=== PATIENT | male | born 1990 ===

== ENCOUNTER 2020-01-17 08:08 | Outpatient (REF) | payer OTHER, SELFPAY ==
[2020-01-17 10:55] LABS: Basophils Absolute Auto 0.1 X10*3/uL (0.0-0.2); Basophils Percent Auto 1.1 % (0-2); Eosinophils Absolute Auto 0.2 X10*3/uL (0.0-0.4); Eosinophils Percent Auto 3.2 % (0-4); Hemoglobin 14.5 g/dl (14.0-18.0); Imm Gran Abs Auto 0.01 X10*3/uL (0.00-0.03); Imm Gran Pct Auto 0.2 % (0.0-0.4); Lymphocytes Absolute Auto 1.5 X10*3/uL (1.2-4.9); Lymphocytes Percent Auto 32.5 % (20-40); MANUAL DIFF FLAG NO; Mean Corpuscular HGB Conc 33.7 g/dl (31.0-36.0); Mean Corpuscular Hemoglobin 27.4 pg (27.0-33.0); Mean Corpuscular Volume 81.1 fL (80-98); Monocytes Absolute Auto 0.5 X10*3/uL (0.1-1.2); Monocytes Percent Auto 11.5 % (2-11); Neutrophils Absolute Auto 2.4 X10*3/uL (2.0-8.3); Neutrophils Percent Auto 51.5 % (45-73); Platelet Count 237 X10*3/uL (160-400); Red Cell Distribution Width 14.3 % (11.0-16.0); White Blood Count 4.7 X10*3/uL (4.8-10.8)
[2020-01-17 13:04] LABS: Alanine Aminotransferase 20 U/L (0-40); Albumin Level 4.6 g/dL (3.5-5.0); Alkaline Phosphatase 73 U/L (39-117); Anion Gap 9 (12-20); Aspartate Amino Transferase 16 U/L (5-37); Bilirubin Total 0.5 mg/dL (0.0-1.0); Blood Urea Nitrogen 10 mg/dL (9-16); Calcium 9.7 mg/dL (8.4-10.2); Carbon Dioxide 30 mmol/L (22-29); Chloride 103 mmol/L (96-108); Cholesterol 147 mg/dL; Estimated Glomerular Filt Rate > 60; Glucose Fasting 88 mg/dL (60-99); HDL Cholesterol 34 mg/dL; LDL Cholesterol Calculated 83 mg/dl; Potassium 4.3 mmol/l (3.3-5.1); Sodium 138 mmol/L (135-145); Total Protein 7.5 g/dL (6.5-8.0); Triglycerides 152 mg/dL
[2020-01-17 13:21] LABS: TSH reflex Free T4 2.23 mIU/mL (0.32-4.0)
== END 2020-01-17 08:09 | disposition home or self-care (01) ==
LOC: HO.WFDLDS 08:08
PROVIDERS: PCP Family Medicine; Visit Provider Family Medicine
DX: Z00.00 Encounter for general adult medical examination without abnormal findings (principal); K21.00 Gastro-esophageal reflux disease with esophagitis, without bleeding; R07.89 Other chest pain
CPT/HCPCS: 36415; 80053; 80061; 84443; 85025

== ENCOUNTER → 2020-02-24 08:15 | Outpatient (BNVA) | payer OTHER, SELFPAY | PROVIDERS: PCP Family Medicine; Referring Provider Family Medicine; Visit Provider Internal Medicine Gastroenterology | DX: Z76.89 Persons encountering health services in other specified circumstances (principal) ==

== ENCOUNTER → 2020-06-15 09:40 | Outpatient (BNVA) | payer OTHER, SELFPAY | PROVIDERS: PCP Family Medicine; Visit Provider Internal Medicine Gastroenterology ==

== ENCOUNTER 2021-11-26 08:06 | Outpatient (REF) | payer OTHER, SELFPAY ==
[2021-11-26 10:44] LABS: Hematocrit 42.5 % (42.0-52.0); Hemoglobin 14.5 g/dl (14.0-18.0); Mean Corpuscular HGB Conc 34.1 g/dl (31.0-36.0); Mean Corpuscular Hemoglobin 27.9 pg (27.0-33.0); Mean Corpuscular Volume 81.7 fL (80.0-98.0); Platelet Count 221 X10*3/uL (160-400); Red Cell Distribution Width 14.6 % (11.0-16.0); White Blood Count 4.5 X10*3/uL (4.8-10.8)
[2021-11-26 11:01] LABS: Alanine Aminotransferase 23 U/L (0-40); Albumin Level 4.3 g/dL (3.5-5.0); Alkaline Phosphatase 62 U/L (39-117); Anion Gap 13 (12-20); Aspartate Amino Transferase 17 U/L (5-37); Bilirubin Total 0.3 mg/dL (0.0-1.0); Blood Urea Nitrogen 12 mg/dL (9-16); Calcium 9.4 mg/dL (8.4-10.2); Carbon Dioxide 26 mmol/L (22-29); Chloride 105 mmol/L (96-108); Cholesterol 145 mg/dL; Estimated Glomerular Filt Rate > 60; Glucose Fasting 91 mg/dL (60-99); HDL Cholesterol 35 mg/dL; LDL Cholesterol Calculated 85 mg/dl; Potassium 4.2 mmol/L (3.3-5.1); Sodium 140 mmol/L (135-145); Total Protein 7.4 g/dL (6.5-8.0); Triglycerides 126 mg/dL
[2021-11-26 11:15] LABS: HBc Num1 0.12 S/CO (0.00-0.79); Hepatitis A Antibody IgM 0.13 Index (0-0.79); Hepatitis B Core Antibody Nonreactive (Nonreactive); Hepatitis B Surface Antigen Negative (Negative); ~HepC Num1 0.08 S/CO (0.00-0.79); ~Hepatitis A Antibody IgM Nonreactive (Nonreactive); ~Hepatitis B Surface Antibody REACTIVE (Nonreactive); ~Hepatitis C Antibody Nonreactive (Nonreactive)
[2021-11-26 11:23] LABS: TSH reflex Free T4 2.52 uIU/mL (0.32-4.0)
[2021-11-29 20:12] LABS: Rubella IgG Antibody 1.08 Index
== END 2021-11-26 08:07 | disposition home or self-care (01) ==
LOC: HO.WFDLDS 08:06
PROVIDERS: Visit Provider Hospitalist
DX: Z00.00 Encounter for general adult medical examination without abnormal findings (principal); Z02.0 Encounter for examination for admission to educational institution; Z20.2 Contact with and (suspected) exposure to infections with a predominantly sexual mode of transmission
CPT/HCPCS: 36415; 80053; 80061; 84443; 85027; 86704; 86706; 86709; 86735; 86762; 86765; 86787; 86803; 87340

== ENCOUNTER → 2022-09-16 12:26 | Outpatient (BNVA) | payer OTHER, SELFPAY | PROVIDERS: PCP Family Medicine; Visit Provider Nurse Practitioner Family | DX: F07.81 Postconcussional syndrome (principal); G47.9 Sleep disorder, unspecified; G47.50 Parasomnia, unspecified; G47.59 Other parasomnia; R06.83 Snoring; R53.83 Other fatigue | CPT/HCPCS: 99202 ==

== ENCOUNTER → 2022-12-22 14:47 | Outpatient (REF) | payer OTHER, SELFPAY | LOC: HO.SL 14:47 | PROVIDERS: Visit Provider Nurse Practitioner Family | DX: R06.83 Snoring (principal); G47.9 Sleep disorder, unspecified; R53.83 Other fatigue; G47.59 Other parasomnia; G47.50 Parasomnia, unspecified | CPT/HCPCS: 95806 ==

== ENCOUNTER → 2022-12-22 15:02 | Outpatient (BNV) | payer OTHER, SELFPAY | PROVIDERS: Visit Provider Psychiatry & Neurology Neurology | DX: R06.83 Snoring (principal) | CPT/HCPCS: 95806 ==

== ENCOUNTER 2022-12-28 08:24 | Outpatient (AMB) | payer OTHER, SELFPAY ==
--- NOTE | 2022-12-28 08:44 | A.OFFVIS_ITS ---
Intake Vital Signs 12/28/22 08:47 Height 5 ft 5 in Weight 149 lb BMI 24.8 BP 98/72 Blood Pressure Location Rt brachial Position Sitting Pulse 63 Pulse Source Pulse Oximeter Pulse Oximetry (%) 99 Oxygen Delivery Method Room Air Intake Visit Reasons: WC 3m follow up Concussion Intake Note: Patient presents for 3 month follow up. Patient states still have headaches, I have like some type of hallucinations seeing bugs. I just been tired a lot, I don't even get a full 8 hours of sleep Allergies amoxicillin [AMOXICILLIN] Allergy (Mild, Verified 12/28/22 08:47) patient got sick with chills omeprazole [OMEPRAZOLE] Adverse Reaction (Severe, Verified 12/28/22 08:47) gi upset with diarrhea ibuprofen [IBUPROFEN] Adverse Reaction (Mild, Verified 12/28/22 08:47) STOMACH UPSET Medication List - Last Reconciled 12/28/22 by NIR Baugh omega 5-tvd-rpi-fish oil 120-180-500 mg (Fish Oil) caps PO HPI HPI Comments History of Present Illness0 Details 32-yr-old male presents for f/u visit. Pt denies any significant interval medical changes. Pt reports that he continues to have a headache and neck pain every night. He is still not sleeping well- still seeing insects. Today, he woke up with spasms in his upper back/shoulders. He states that PT is not helping. He tried Mag qam - not sure if it helped, stopped when he finished the bottle. Never tried B2- was taking other supplements He is hesitant to take prescription medication. PFSH Surgical History Hx of endoscopy Family History Father Medical history unknown Mother No problems noted. Brother Leukemia Social History Household Members: Spouse Housing: Apartment Alcohol intake: current Alcohol intake frequency: does not drink Patient Tobacco Use Status: Never used Tobacco e-Cigarette/Vaping Use: Never Used Second Hand Smoke Exposure: No service: No Current occupational status: employed Current occupational exposures/hazards: No Cognitive needs: No Hearing needs: No Vision needs: No Review of Systems Const All systems reviewed & are unremarkable except as noted in HPI and below Physical Exam Vital Signs: Last Vital Signs Pulse 63 12/28/22 08:47 BP 98/72 12/28/22 08:47 Pulse Ox 99 12/28/22 08:47 Oxygen Delivery Method Room Air 12/28/22 08:47 BMI result Body Mass Index 24.8 Const General: cooperative and no acute distress Orientation/consciousness: patient oriented x3 HEENT Head: Yes normocephalic Resp Effort & Inspection: normal respiratory effort and able to speak in complete sentences Neuro Other: Photophobic General: patient oriented x3, gait normal and CN's II-XI intact bilaterally Cognition (Neuro): normal cognition Motor exam (neuro): 5/5 motor strength present throughout Psych Appearance: grossly normal Mental Status: mental status grossly normal Speech and movement: Normal speech and movement present Affect: normal affect Attitude: cooperative Thought process: Normal thought process present Thought content: Normal thought content present Insight: Good insight present (Psych) Judgement: Good judgement present (Psych) Assessment & Plan Assessment & Plan (1) Snoring: Code(s): R06.83 - Snoring (2) Sleep difficulties: Code(s): G47.9 - Sleep disorder, unspecified (3) Parasomnia: Code(s): G47.50 - Parasomnia, unspecified (4) Sleep-related hallucinations: Code(s): G47.59 - Other parasomnia (5) Postconcussive syndrome: Code(s): F07.81 - Postconcussional syndrome (6) Restless leg syndrome: Code(s): G25.81 - Restless legs syndrome Plan For Postconcussive Syndrome: Discussed diagnosis, treatment, and trajectory. Pt is not interested in trying Prescription medications at this time. For Postconcussive headache prevention medication: Again start Riboflavin 400mg qam Resume Magnesium 400-500mg qhs For Postconcussive acute headache treatment: Tylenol prn. For headache triggers: Track headaches. Information also given on non-pharmacological interventions, such as Cefaly or Nerivio neuromodulation devices. For Parasomnias, sleep hallucinations, feeling of insects crawling on him, muscle spasms: Reviewed labs- CBC, CMP, B-12, TSH- NL. Ferritin- 89. HST- results inconclusive Pt advised to undergo in-lab PSG to assess for sleep apnea, REM sleep behaviors, PLMS. DDx include RLS, HALIMA, PLMS, REM sleep behavior behaviors. Future considerations: MRI brain. Pt to follow-up in 3 months or sooner prn. Orders: Orders RT PSG in-lab sleep study Today G47.50 - Parasomnia, unspecified, G47.59 - Other parasomnia, G47.9 - Sleep disorder, unspecified, R06.83 - Snoring Medications: New magnesium oxide may hold for loose stools 400 mg PO BEDTIME 30 days 30 tabs 6RF riboflavin (vitamin B2) in am 400 mg (4 x 100 mg) PO DAILY 30 days 120 tabs 6RF Coding Level of Care Code Est Pt Level 4 (35830) Diagnoses Snoring R06.83 Sleep difficulties G47.9 Parasomnia G47.50 Sleep-related hallucinations G47.59 Postconcussive syndrome F07.81 Restless leg syndrome G25.81
[2022-12-28 08:47] VITALS: BP 98/72; PULSE 63; O2SAT 99; BMI 24.8
== END 2022-12-28 09:19 | disposition home or self-care (01) ==
PROVIDERS: PCP Family Medicine; Visit Provider Nurse Practitioner Family
DX: R06.83 Snoring (principal); G47.9 Sleep disorder, unspecified; G47.50 Parasomnia, unspecified; G47.59 Other parasomnia; F07.81 Postconcussional syndrome; G25.81 Restless legs syndrome
CPT/HCPCS: 99214

== ENCOUNTER → 2022-12-28 08:24 | Outpatient (BNVA) | payer OTHER, SELFPAY | PROVIDERS: PCP Family Medicine; Visit Provider Nurse Practitioner Family | DX: G47.59 Other parasomnia (principal); R06.83 Snoring; F07.81 Postconcussional syndrome; G25.81 Restless legs syndrome | CPT/HCPCS: 99212 ==

== ENCOUNTER 2023-01-11 09:49 | Outpatient (AMB) | payer OTHER, SELFPAY ==
--- NOTE | 2023-01-11 09:58 | AM.OFFWIN_ITS ---
Intake Vital Signs 01/11/23 10:05 Height 5 ft 5 in Weight 146 lb BMI 24.3 BP 112/60 Blood Pressure Location Lt brachial Position Sitting Pulse 84 Pulse Source Pulse Oximeter Temp 96.6 F L Temp Source Temporal Artery Scan Pulse Oximetry (%) 98 Oxygen Delivery Method Room Air Intake Visit Reasons: EP, WC back/neck injury Intake Note: Pt is here c/o neck/back, shoulder blade. Pt states he was injured at work in May 2022. Patient Tobacco Use Status: Never used Tobacco Allergies amoxicillin [AMOXICILLIN] Allergy (Mild, Verified 12/28/22 08:47) patient got sick with chills omeprazole [OMEPRAZOLE] Adverse Reaction (Severe, Verified 12/28/22 08:47) gi upset with diarrhea ibuprofen [IBUPROFEN] Adverse Reaction (Mild, Verified 12/28/22 08:47) STOMACH UPSET HPI EP, WC back/neck injury HPI Details 32-year-old male patient presents today for ongoing issues stemming from a fall at work back in May 2022, in which he slipped on stairs and hit the back of his head and upper back. He has been treated since then at [facility] and has completed several months of physical therapy. He has seen Neurology for post concussive syndrome and sleep difficulty. He is scheduled for a sleep study next week on 01/15. He does have follow-up with his PCP Dr. Wen 01/18/23. He recently tried chiropractic treatment, however adjustments were too painful, and he discontinued this. He has not wanted to take medications for his ongoing pain. His primary complaints of pain are in his posterior neck, upper thoracic spine, and right shoulder blade. He is interested in alternative therapy and would like to see pain management if possible. [facility] Surgical History Hx of endoscopy Family History Father Medical history unknown Mother No problems noted. Brother Leukemia Social History Household Members: Spouse Housing: Apartment Alcohol intake: current Alcohol intake frequency: does not drink Patient Tobacco Use Status: Never used Tobacco e-Cigarette/Vaping Use: Never Used Second Hand Smoke Exposure: No service: No Current occupational status: employed Current occupational exposures/hazards: No Cognitive needs: No Hearing needs: No Vision needs: No Review of Systems Const All systems reviewed & are unremarkable except as noted in HPI and below Physical Exam Vital Signs: Last Vital Signs Temp 96.6 F L 01/11/23 10:05 Pulse 84 01/11/23 10:05 BP 112/60 01/11/23 10:05 Pulse Ox 98 01/11/23 10:05 Oxygen Delivery Method Room Air 01/11/23 10:05 BMI result Body Mass Index 24.3 Const General: cooperative, healthy appearing and no acute distress Orientation/consciousness: patient oriented x3 HEENT Head: Yes normal to inspection and Yes normocephalic Ears: hearing grossly normal bilaterally Neck Neck: Yes no lymphadenopathy Resp Effort & Inspection: normal respiratory effort and able to speak in complete sentences Back/Spine/Pelvis Cervical Spine: normal cervical lordosis, cervical muscular tenderness (bilateral, R>L) and pain with cervical ROM Thoracic/Lumbar Spine: thoracic and lumbar spine normal to inspection and paraspinal muscle tenderness (Thoracic and lumbar paraspinal TTP, traps and rhomboids R>L) on the right greater than left Skin General skin exam: no rashes or lesions noted Neuro General: patient oriented x3 and gait normal Extrem General: Yes capillary refill normal and Yes no clubbing, cyanosis or edema Psych Appearance: grossly normal Mental Status: mental status grossly normal Speech and movement: Normal speech and movement present Assessment & Plan Assessment & Plan (1) Postconcussive syndrome: Code(s): F07.81 - Postconcussional syndrome Plan: This is a very pleasant 32-year-old gentleman with post concussive syndrome, and ongoing cervical and thoracic pain following work injury on a flight of stairs in 05/2022. He has been seen at [facility] and [facility] where he completed several month course of PT. he is followed by Neurology, and has a sleep study on 01/15. He is still having difficulty with his pain, and this is impacting activity in daily life. He does not wish to treat with medication, and is interested in seeking alternative therapy. He recently tried chiropractic treatment, however this proved to be too painful to continue. I discussed with him the option of seeing pain management at [facility], as they have many different injection therapy to consider. He is very willing to see them. I will enter referral for this. He is seeing PCP Dr. Wen next week and encouraged he discuss this with him further. He agrees to plan. (2) Musculoskeletal pain: Code(s): M79.18 - Myalgia, other site Orders: Referrals Pain Management Referral F07.81 - Postconcussional syndrome, M79.18 - Myalgia, other site Coding Level of Care Code Est Pt Level 3 (05514) Diagnoses Postconcussive syndrome F07.81 Musculoskeletal pain M79.18
[2023-01-11 10:05] VITALS: BP 112/60; PULSE 84; TEMP 35.9; O2SAT 98; BMI 24.3
== END 2023-01-11 10:39 | disposition home or self-care (01) ==
PROVIDERS: PCP Family Medicine; Visit Provider Nurse Practitioner Family
DX: M79.18 Myalgia, other site (principal); F07.81 Postconcussional syndrome
CPT/HCPCS: 99213

== ENCOUNTER → 2023-01-15 20:30 | Outpatient (REF) | payer OTHER, SELFPAY | LOC: HO.SL 20:30 | PROVIDERS: PCP Family Medicine; Visit Provider Nurse Practitioner Family | DX: G47.59 Other parasomnia (principal); G47.9 Sleep disorder, unspecified; R06.83 Snoring | CPT/HCPCS: 95810 ==

== ENCOUNTER → 2023-01-15 23:17 | Outpatient (BNV) | payer OTHER, SELFPAY | PROVIDERS: PCP Family Medicine; Visit Provider Psychiatry & Neurology Neurology | DX: R06.83 Snoring (principal) | CPT/HCPCS: 95810 ==

== ENCOUNTER 2023-01-18 14:18 | Outpatient (AMB) | payer OTHER, SELFPAY ==
[2023-01-18 14:26] VITALS: BP 118/78; PULSE 71; O2SAT 98; BMI 25.0
--- NOTE | 2023-01-18 14:26 | A.OFFPC_ITS ---
Vital Signs 01/18/23 14:26 Height 5 ft 5 in Weight 150 lb 4 oz BMI 25.0 BP 118/78 Blood Pressure Location Lt brachial Position Sitting Pulse 71 Pulse Source Pulse Oximeter Pulse Oximetry (%) 98 Oxygen Delivery Method Room Air Intake Visit Reasons: workers comp follow up Intake Note: Patient is here to follow up on Workman's comp injury after fall down stairs. Allergies amoxicillin [AMOXICILLIN] Allergy (Mild, Verified 01/18/23 14:30) patient got sick with chills omeprazole [OMEPRAZOLE] Adverse Reaction (Severe, Verified 01/18/23 14:30) gi upset with diarrhea ibuprofen [IBUPROFEN] Adverse Reaction (Mild, Verified 01/18/23 14:30) STOMACH UPSET Tobacco use date assessed: 01/18/23 Dental Screening Did you have a dental visit in the last 12 months?: Yes Did you have a dental problem in the last 6 months where you did not have access to dental care?: No Was dental information given to patient?: Patient has dentist HPI workers comp follow up HPI Details 32 y/o male presents with post concussiv e syndrome and ongoing cervical/thoracic pain following work injury on flight of stairs 05/2022. Had been seen at [facility] and [facility] where he completed several month course of PT, followed by Neurology. Had been unable to tolerate Chiropractics. [facility] Surgical History Hx of endoscopy Family History Father Medical history unknown Mother No problems noted. Brother Leukemia Social History Household Members: Spouse Housing: Apartment Alcohol intake: current Alcohol intake frequency: does not drink Patient Tobacco Use Status: Never used Tobacco e-Cigarette/Vaping Use: Never Used Second Hand Smoke Exposure: No service: No Current occupational status: employed Current occupational exposures/hazards: No Cognitive needs: No Hearing needs: No Vision needs: No Physical exam (Primary Care) Vital Signs: Last Vital Signs Pulse 71 01/18/23 14:26 BP 118/78 01/18/23 14:26 Pulse Ox 98 01/18/23 14:26 Oxygen Delivery Method Room Air 01/18/23 14:26 BMI result Body Mass Index 25.0 Tobacco/Smoking Status: Tobacco use Status Tobacco use date assessed 01/18/23 01/18/23 14:31 Patient Tobacco Use Status Never used Tobacco 01/18/23 14:31 e-Cigarette/Vaping Use Never Used 01/18/23 14:31 Assessment and Plan Assessment & Plan (1) Back pain: Code(s): M54.9 - Dorsalgia, unspecified Plan: 32 y/o male w/ post concussive syndrome, and ongoing cervical and thoracic pain following work injury on a flight of stairs in 05/2022. He has been seen at [facility] and [facility] where he completed several month course of PT. he is followed by Neurology, Tried Chiropractics but didn't tolerate due to pain. Recently seen at [facility]-in and referred to pain management. Still unable to work. 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 school?systems?when?he?is?able. Follow-up?with?pain?management?as?recommended. Continue?ice?and?heat,?gentle?stretching.??Continue?magnesium. Can?use?Aleve?or?NSAIDs?as?needed; patient?does?not?like?to?use?medications. (2) Postconcussive syndrome: Code(s): F07.81 - Postconcussional syndrome Plan: Unclear?if?he?has?any?lasting?sequela?from?postconcussi ve?syndrome?though?he?does?seem?mildly?anxious/depressed He?has?had?a?therapist?in?the?past?though?does?not?currently. I?let?him?know?that?he?could?use?a?medication?but?patient?declines?as?he?does?no t?like?to?use?medications.??See?below. (3) Anxiety: Code(s): F41.9 - Anxiety disorder, unspecified Plan: Made?patient?aware?that?he?could?use?medications?which?could?help?with?any?anxie ty?or?depression?that?he?has. He?declines?this?for?now. Plan Let?patient?know?that?some?medications?such?as?Cymbalta?can?help?with?anxiety/de pression?as?well?as?pain. He?does?not?want?to?try?a?medication?at?this?time?but?is?now?where.??He?can?let? me?know?if?he?changes?his?mind. Coding Level of Care Code Est Pt Level 4 (31283) Diagnoses Back pain M54.9 Postconcussive syndrome F07.81 Anxiety F41.9
== END 2023-01-18 15:54 | disposition home or self-care (01) ==
PROVIDERS: PCP Family Medicine; Visit Provider Family Medicine
DX: M54.9 Dorsalgia, unspecified (principal); F07.81 Postconcussional syndrome; F41.9 Anxiety disorder, unspecified
CPT/HCPCS: 99214

== ENCOUNTER 2023-01-30 08:19 | Outpatient (AMB) | payer OTHER, SELFPAY ==
[2023-01-30 08:39] VITALS: BP 115/70; PULSE 67; O2SAT 96; BMI 24.7
--- NOTE | 2023-01-30 08:39 | A.OFFVIS_ITS ---
Intake Vital Signs 01/30/23 08:39 Height 5 ft 5 in Weight 148 lb 6 oz BMI 24.7 BP 115/70 Blood Pressure Location Rt brachial Position Sitting Pulse 67 Pulse Source Pulse Oximeter Pulse Oximetry (%) 96 Oxygen Delivery Method Room Air Intake Visit Reasons: myalgia, post-concussion syndrome Intake Note: Pt here after sustaining a fall at work in May 2022-c/o 8/10 neck pain/upper back Allergies amoxicillin [AMOXICILLIN] Allergy (Mild, Verified 01/30/23 08:41) patient got sick with chills omeprazole [OMEPRAZOLE] Adverse Reaction (Severe, Verified 01/30/23 08:41) gi upset with diarrhea ibuprofen [IBUPROFEN] Adverse Reaction (Mild, Verified 01/30/23 08:41) STOMACH UPSET Medication List - Last Reconciled 01/30/23 by Aspen Stephenson, RN magnesium oxide 400 mg PO BEDTIME 30 days riboflavin (vitamin B2) 400 mg (4 x 100 mg) PO DAILY 30 days HPI HPI Comments History of Present Illness Details Jesus is very pleasant 32 years old gentleman who presents in my office by referral of Fauzia Love with symptoms of widespread body pain and diagnosis of cervicalgia and cervical spondylosis. The patient had trauma in May of 2021 a and the mechanism of trauma was sleep and fall. He fell on his back and injured his head and neck during the fall. Since then he is suffering from severe pain in the neck severe pain in the right shoulder and the right scapula as well as pain in the thoracic spine pain in lumbar spine in pain in the right side of the coccyx. However today he presents with most prominent pain in the neck. It is most debilitating in causes severe impairment he cannot sleep normally cannot do activities of daily living he can take care of himself but he cannot function normally. Weather changes aggravates his pain and cold application make his pain better his level of pain is 8/10. In terms of tissue damage he reports his pain as sharp, cutting, lacerating, pinching, crushing, tugging, ranging, tingling, stinging, dull, heavy, tight, tearing. He is currently taking vitamin B2 and OTC magnesium for the spastic sensations in his body. He participated in physical therapy 4 times and each time he had about 4 sessions and he performed home exercise program. He also tried low impact aerobic exercise as well as stretching in the attempt to alleviate his pain. He tried chiropractic manipulations however chiropractor did not address the issue of his cervical spine. The chiropractor was doing only lower back and hip manipulations. His past medical history is negative. Past surgical history is negative. He denies smoking cigarettes drinking alcohol using recreational drugs. He is working individual. PFSH Surgical History Hx of endoscopy Family History Father Medical history unknown Mother No problems noted. Brother Leukemia Social History Household Members: Spouse Housing: Apartment Alcohol intake: current Alcohol intake frequency: does not drink Patient Tobacco Use Status: Never used Tobacco e-Cigarette/Vaping Use: Never Used Second Hand Smoke Exposure: No service: No Current occupational status: employed Current occupational exposures/hazards: No Cognitive needs: No Hearing needs: No Vision needs: No Review of Systems Const Denies body aches, Denies chills, Denies daytime sleepiness, Denies difficulty sleeping, Denies excessive sweating and Denies fatigue Eyes Denies change in vision Card Denies chest pain at rest, Denies chest pain with activity, Denies diaphoresis, Denies syncope, Denies rapid heart rate and Denies pedal edema Resp Denies chest congestion, Denies cough, Denies hemoptysis, Denies pain on inspiration and Denies pain with cough GI Denies abdominal pain, Denies belching, Denies melena and Denies bloating Denies urinary incontinence Musc Reports as per HPI Neuro Denies confusion, Denies syncope, Denies memory loss, Denies seizure-like acti vity and Denies Sensory deficit (Neuro) Psych Denies confusion, Denies irritability, Denies anhedonia and Denies memory loss Endo Denies excessive sweating and Denies fatigue Physical Exam Vital Signs: Last Vital Signs Pulse 67 01/30/23 08:39 BP 115/70 01/30/23 08:39 Pulse Ox 96 01/30/23 08:39 Oxygen Delivery Method Room Air 01/30/23 08:39 BMI result Body Mass Index 24.7 Const General: No confusion Orientation/consciousness: No confusion HEENT Head: Yes normal to inspection and Yes normocephalic Ears: hearing grossly normal bilaterally Neck Neck: Yes no lymphadenopathy Resp Effort & Inspection: normal respiratory effort and able to speak in complete sentences Back/Spine/Pelvis Cervical Spine: normal cervical lordosis, cervical muscular tenderness (bilateral, R>L) and pain with cervical ROM Thoracic/Lumbar Spine: thoracic and lumbar spine normal to inspection and paraspinal muscle tenderness (Thoracic and lumbar paraspinal TTP, traps and rhomboids R>L) on the right greater than left Skin General skin exam: no rashes or lesions noted Neuro General: No confusion Sensory Exam: No Sensory deficit (Neuro) Extrem General: Yes capillary refill normal and Yes no clubbing, cyanosis or edema Psych Appearance: grossly normal Mental Status: mental status grossly normal Speech and movement: Normal speech and movement present Results Reviewed Results Reviewed: X-rays not available to me however dorsal of cervical lordosis was mentioned in the 1 of his providers nodes. Assessment & Plan Assessment & Plan (1) Chronic pain syndrome: Code(s): G89.4 - Chronic pain syndrome (2) Spondylosis of cervical spine: Code(s): M47.812 - Spondylosis without myelopathy or radiculopathy, cervical region (3) Spondylosis of cervical joint without myelopathy: Code(s): M47.812 - Spondylosis without myelopathy or radiculopathy, cervical region (4) Postconcussive syndrome: Code(s): F07.81 - Postconcussional syndrome (5) Paresthesias: Code(s): R20.2 - Paresthesia of skin (6) Fatigue: Code(s): R53.83 - Other fatigue (7) Headache: Code(s): R51.9 - Headache, unspecified (8) Musculoskeletal pain: Code(s): M79.18 - Myalgia, other site Plan Most likely this patient is suffering from muscular skeletal pain as well as spondylosis of cervical spine. The straightening of the lordosis of the cervical spine is demonstrable in this patient's case. I offered this patient therapeutic medial branch block C4-C5 C6 bilateral in the attempt to alleviate his pain. If the injection will give patient significant pain relief I will schedule him for series of injections but no more frequent that months in 3 months. Alternatively we can try sprint PNS if initial C4-C5 bilateral MBB will be working for him He will be referred to physical therapy again if injection is successful alleviates his pain. I also recommend him to find a good chiropractor who can work on restoring his cervical lordosis. Coding Level of Care Code New Pt Level 4 (14336) Diagnoses Chronic pain syndrome G89.4 Spondylosis of cervical spine M47.812 Spondylosis of cervical joint without myelopathy M47.812 Postconcussive syndrome F07.81 Paresthesias R20.2 Fatigue R53.83 Headache R51.9 Musculoskeletal pain M79.18
== END 2023-01-30 08:47 | disposition home or self-care (01) ==
PROVIDERS: PCP Family Medicine; Visit Provider Anesthesiology
DX: G89.4 Chronic pain syndrome (principal); M47.812 Spondylosis without myelopathy or radiculopathy, cervical region; M79.18 Myalgia, other site; F07.81 Postconcussional syndrome; R20.2 Paresthesia of skin; R53.83 Other fatigue; R51.9 Headache, unspecified
CPT/HCPCS: 99204

== ENCOUNTER → 2023-01-30 08:19 | Outpatient (BNVA) | payer OTHER, SELFPAY | PROVIDERS: PCP Family Medicine; Visit Provider Anesthesiology ==

== ENCOUNTER 2023-01-31 14:27 | Outpatient (AMB) | payer OTHER, SELFPAY ==
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
[2023-01-31 15:00] VITALS: BP 118/70; PULSE 67; TEMP 36.6; O2SAT 97; BMI 24.6
== END 2023-01-31 16:26 | disposition home or self-care (01) ==
PROVIDERS: PCP Family Medicine; Visit Provider Physician Assistant
DX: S16.1XXA Strain of muscle, fascia and tendon at neck level, initial encounter (principal); S29.019A Strain of muscle and tendon of unspecified wall of thorax, initial encounter
CPT/HCPCS: 99213

== ENCOUNTER 2023-03-13 16:01 | Outpatient (AMB) | payer OTHER, BC, SELFPAY ==
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
[2023-03-13 16:24] VITALS: BP 110/62; PULSE 63; O2SAT 96; BMI 25.1
== END 2023-03-13 16:50 | disposition home or self-care (01) ==
PROVIDERS: PCP Family Medicine; Visit Provider Internal Medicine
DX: R25.2 Cramp and spasm (principal)
CPT/HCPCS: 99213

== ENCOUNTER 2023-03-21 06:05 | Outpatient (REF) | payer OTHER, BC, SELFPAY ==
--- NOTE | ~2023-03-21 | FL_ITS ---
EXAMINATION: XR FLUOROSCOPY WITH IMAGES CLINICAL INFORMATION: Spondylosis without myelopathy or radiculopathy, cervical region. COMPARISON: None available. TECHNIQUE: Fluoroscopy Supervised By: Dr. Devonte Raya. Fluoroscopy Time: 0.7 minutes. Cumulative Dose: 1.88 mGy. DAP: 0.0257 Gycm2. Images: 2. FINDINGS: Images demonstrate needle placement and contrast injection adjacent to bilateral lateral cervical vertebrae FL/FL guidance in treatment room IMPRESSION: Fluoroscopy guidance for pain management procedure.
== END 2023-03-21 06:06 | disposition home or self-care (01) ==
LOC: CF 06:05
PROVIDERS: Visit Provider Anesthesiology
DX: M47.812 Spondylosis without myelopathy or radiculopathy, cervical region (principal); M79.18 Myalgia, other site; R20.2 Paresthesia of skin; G89.4 Chronic pain syndrome
CPT/HCPCS: 64490; 64491; J1100; J2795; J3301; Q9967

== ENCOUNTER 2023-03-21 07:53 | Outpatient (AMB) | payer BC, SELFPAY ==
--- NOTE | 2023-03-21 08:39 | MHC.OFFVIS ---
Intake Vital Signs 03/21/23 09:02 03/21/23 09:03 Height 5 ft 5 in 5 ft 5 in Weight 151 lb 151 lb BMI 25.1 25.1 BP 118/62 118/70 Blood Pressure Location Lt brachial Lt brachial Position Sitting Sitting Respiration 18 18 Pulse 68 62 Pulse Source Pulse Oximeter Pulse Oximeter Pulse Oximetry (%) 97 100 Oxygen Delivery Method Room Air Room Air Comment pre-op post-op Intake Visit Reasons: BILAT C4-C5-C6 MBB W/STEROIDS/LOCAL Allergies amoxicillin [AMOXICILLIN] Allergy (Mild, Verified 03/21/23 09:03) patient got sick with chills omeprazole [OMEPRAZOLE] Adverse Reaction (Severe, Verified 03/21/23 09:03) gi upset with diarrhea ibuprofen [IBUPROFEN] Adverse Reaction (Mild, Verified 03/21/23 09:03) STOMACH UPSET PFSH Surgical History Hx of endoscopy Family History Father Medical history unknown Mother No problems noted. Brother Leukemia Social History Household Members: Spouse Housing: Apartment Alcohol intake: current Alcohol intake frequency: does not drink Patient Tobacco Use Status: Never used Tobacco e-Cigarette/Vaping Use: Never Used Second Hand Smoke Exposure: No service: No Current occupational status: employed Current occupational exposures/hazards: No Cognitive needs: No Hearing needs: No Vision needs: No Physical Exam Vital Signs: Last Vital Signs Pulse 62 03/21/23 09:03 Resp 18 03/21/23 09:03 BP 118/70 03/21/23 09:03 Pulse Ox 100 03/21/23 09:03 Oxygen Delivery Method Room Air 03/21/23 09:03 BMI result Body Mass Index 25.1 Assessment & Plan Assessment & Plan (1) Chronic pain syndrome: Code(s): G89.4 - Chronic pain syndrome (2) Spondylosis of cervical spine: Code(s): M47.812 - Spondylosis without myelopathy or radiculopathy, cervical region (3) Spondylosis of cervical joint without myelopathy: Code(s): M47.812 - Spondylosis without myelopathy or radiculopathy, cervical region (4) Postconcussive syndrome: Code(s): F07.81 - Postconcussional syndrome (5) Paresthesias: Code(s): R20.2 - Paresthesia of skin Plan: Bilateral C4-C4- C6 therapeutic medial branch block. ?Informed consent was explained to the patient. All questions were explained and answered.? The patient was taken inside the operating room where she was positioned prone on the operating table. Time-out was performed delineating correct site, side, the nature of the procedure, patient's allergy, preoperative antibiotic if needed.? All operating room staff was participating in OR time-out procedure. The back of the neck and upper back were prepped with ChloraPrep and draped with sterile towels.? Sterilely draped C-arm was brought over the operating field and sq picture of? C4-C5-C6 vertebrae were delineated on the screen.? Points of interest were delineated as lateral masses bilaterally of the vertebrae as above. The waste of each lateral mass was chosen as the target of the tip of the needles on AP view and lateral view was used as a safety view for the tips of the needles position.?? The projections of the point of interest to the skin were injected with the small amount of local anesthetic lidocaine 2% 1-1.5 cc.? After that 22 gauge 3and 1/2 inch? spinal needles were driven to the point of interest in tunnel vision fashion. After needles gently contacted the bone at the point of interests the needle was injected with small amount of the contrast. The injections did not demonstrate intravascular or intrathecal spread.. After that ropivacaine 0.5%-1cc. mixed with kenalog was injected into each location of the needles. ( total dose of Kenalog was 80 mgs).? Upon completion of the injections the needles were removed and sterile dressings were applied, the patient was a taken? outside of the operating room to recovery room where she recovered uneventfully. (6) Fatigue: Code(s): R53.83 - Other fatigue (7) Headache: Code(s): R51.9 - Headache, unspecified (8) Musculoskeletal pain: Code(s): M79.18 - Myalgia, other site Plan Most likely this patient is suffering from muscular skeletal pain as well as spondylosis of cervical spine. The straightening of the lordosis of the cervical spine is demonstrable in this patient's case. I offered this patient therapeutic medial branch block C4-C5 C6 bilateral in the attempt to alleviate his pain. If the injection will give patient significant pain relief I will schedule him for series of injections but no more frequent that months in 3 months. Alternatively we can try sprint PNS if initial C4-C5 bilateral MBB will be working for him He will be referred to physical therapy again if injection is successful alleviates his pain. I also recommend him to find a good chiropractor who can work on restoring his cervical lordosis. Orders: Orders FL guidance in treatment room 03/21/23 M47.812 - Spondylosis without myelopathy or radiculopathy, cervical region Coding Level of Care Code Procedure Only Diagnoses Chronic pain syndrome G89.4 Spondylosis of cervical spine M47.812 Spondylosis of cervical joint without myelopathy M47.812 Postconcussive syndrome F07.81 Paresthesias R20.2 Fatigue R53.83 Headache R51.9 Musculoskeletal pain M79.18
[2023-03-21 09:02] VITALS: BP 118/62; PULSE 68; RESP 18; O2SAT 97; BMI 25.1
[2023-03-21 09:03] VITALS: BP 118/70; PULSE 62; RESP 18; O2SAT 100; BMI 25.1
== END 2023-03-21 08:37 | disposition home or self-care (01) ==
LOC: HO.PMCPRC 07:53
PROVIDERS: PCP Family Medicine; Visit Provider Anesthesiology
DX: M47.812 Spondylosis without myelopathy or radiculopathy, cervical region (principal)
CPT/HCPCS: 64490; 64491

== ENCOUNTER 2023-03-30 14:32 | Outpatient (AMB) | payer OTHER, BC, SELFPAY ==
--- NOTE | 2023-03-30 14:33 | MHC.PC.OV ---
Vital Signs 03/30/23 14:35 Height 5 ft 5 in Weight 150 lb BMI 25.0 BP 118/80 Blood Pressure Location Lt brachial Position Sitting Pulse 67 Pulse Source Pulse Oximeter Pulse Oximetry (%) 98 Oxygen Delivery Method Room Air Intake Visit Reasons: Pain & Management Referral Intake Note: Patient is here for pain management referral. Allergies amoxicillin [AMOXICILLIN] Allergy (Mild, Verified 03/30/23 14:37) patient got sick with chills omeprazole [OMEPRAZOLE] Adverse Reaction (Severe, Verified 03/30/23 14:37) gi upset with diarrhea ibuprofen [IBUPROFEN] Adverse Reaction (Mild, Verified 03/30/23 14:37) STOMACH UPSET Tobacco use date assessed: 03/30/23 Dental Screening Dental Screen Date: 03/30/23 Did you have a dental visit in the last 12 months?: Yes Did you have a dental problem in the last 6 months where you did not have access to dental care?: No Was dental information given to patient?: Patient has dentist HPI Pain & Management Referral HPI Details 32 y/o male presents to f/u chronic pain. Had seen Dr. Raya 03/21/23 pain management. Per note pt most likely suffering from muscular skeletal pain as well as spondylosis of cervical spine. Had offered pt injection therapy and referral to PT again if injection successful. He notes ongoing spasms under his shoulder blades and back. He has been taking tylenol for relief. He notes he has trialed muscle relaxants in the past which did not help much. PFSH Surgical History Hx of endoscopy Family History Father Medical history unknown Mother No problems noted. Brother Leukemia Social History Household Members: Spouse Housing: Apartment Alcohol intake: current Alcohol intake frequency: does not drink Patient Tobacco Use Status: Never used Tobacco e-Cigarette/Vaping Use: Never Used Second Hand Smoke Exposure: No service: No Current occupational status: employed Current occupational exposures/hazards: No Cognitive needs: No Hearing needs: No Vision needs: No Questionnaire PHQ-9 Over the last 2 weeks, how often have you been bothered by any of the following problems? 1. Little interest or pleasure in doing things: not at all 2. Feeling down, depressed, or hopeless: not at all 3. Trouble falling or staying asleep, or sleeping too much: nearly every day 4. Feeling tired or having little energy: not at all 5. Poor appetite or overeating: not at all 6. Feeling bad about yourself - or that you are a failure or have let yourself or your family down: not at all 7. Trouble concentrating on things, such as reading the newspaper or watching television: not at all 8. Moving or speaking so slowly that other people could have noticed. Or the opposite - being so fidgety or restless that you have been moving around a lot more than usual: not at all 9. Thoughts that you would be better off or of hurting yourself in some way: not at all Total score: 3 Depression Screening Interpretation: Negative Depression Screening Done: Yes Source: Developed by Drs. Wil Lugo, Elke Olivarez, Blaise Gardner and colleagues, with an educational alex from [employer]. Thrive Questionnaire Date Thrive assessed: 03/30/23 I am a: Patient What is your living situation today?: I have a steady place to live Within the past 12 months, did the food you bought not last and you didn't have the money to get more?: Often true Within the past 12 months, did you worry whether your food would run out before you got money to buy more?: Often true Do you have trouble paying for medicines?: No Do you have trouble getting transportation to medical appointments?: No Do you have trouble paying your heating and electricity bill?: Yes Do you have trouble taking care of your child, family member or friend?: No Do you have trouble with day-to-day activities such as bathing, preparing meals, shopping, managing finances, etc.?: No Are you currently unemployed and looking for a job?: No Are you interested in more education?: No AUDIT C Alcohol Use Questionnaire (AUDIT-C) 1. How often do you have a drink containing alcohol?: Never 3. How often do you have six or more drinks on one occasion?: Never Total Score: 0 YEE-7 AMB Questionnaire YEE-7 Date YEE - 7 assessed: 03/30/23 Feeling nervous, anxious, or on edge: 0 = Not at all Not being able to stop or control worryin = Not at all Worrying too much about different things: 0 = Not at all Trouble relaxin = Not at all Being so restless that it is hard to sit still: 0 = Not at all Becoming easily annoyed or irritable: 0 = Not at all Feeling afraid as if something awful might happen: 0 = Not at all Total YEE-7 score (0-4 normal; 5-9 mild; 10-14 moderate; 15-21 severe): 0 Source: Developed by Drs. Wil Lugo, Elke Olivarez, Blaise Gardner and colleagues, with an educational alex from [employer]. Review of Systems Const Denies chills, Denies fatigue, Denies fever(s), Denies headache(s) and Denies weakness ENT Denies dizziness and Denies headache(s) Card Denies dyspnea Resp Denies cough, Denies dyspnea, Denies wheezing and Denies other (shortness of breath) Musc Denies numbness and Denies tingling Neuro Denies dizziness, Denies headache(s), Denies numbness, Denies tingling and Denies weakness Psych Denies anxiety and Denies depression Endo Denies fatigue Aller/Immun Denies wheezing Physical exam (Primary Care) Vital Signs: Last Vital Signs Pulse 67 03/30/23 14:35 BP 118/80 03/30/23 14:35 Pulse Ox 98 03/30/23 14:35 Oxygen Delivery Method Room Air 03/30/23 14:35 BMI result Body Mass Index 25.0 Tobacco/Smoking Status: Tobacco use Status Tobacco use date assessed 03/30/23 03/30/23 14:37 Patient Tobacco Use Status Never used Tobacco 03/30/23 14:35 e-Cigarette/Vaping Use Never Used 03/30/23 14:35 Depression Screening Interpretation: Negative Const General: well developed; No acute distress Nutritional Appearance: well nourished Orientation/consciousness: patient oriented x3 HENMT Head: Yes normocephalic and Yes atraumatic Eyes General: appearance normal, both eyes and all related structures Pupils: Equal, round and reactive pupils present EOM: EOMs intact bilaterally Resp Effort & Inspection: normal respiratory effort Neuro General: patient oriented x3 and gait normal Cranial nerves: Yes Equal, round and reactive pupils present Psych Affect: normal affect Assessment and Plan Assessment & Plan (1) Chronic pain syndrome: Code(s): G89.4 - Chronic pain syndrome Plan: Ongoing?chronic?pain?in?neck?back?and?hip He?notes?significant?improvement?in?his?neck?after?injection?therapy?at?pain?management. Pain?management?and?also?recommended?physical?therapy?and?chiropractic?so?I?have?made?these?referrals Will?give?him?diclofenac?topical?as?he?does?not?like?taking?pills (2) Spondylosis of cervical spine: Code(s): M47.812 - Spondylosis without myelopathy or radiculopathy, cervical region Plan: As?above (3) Financial difficulties: Code(s): M54.9 - Dorsalgia, unspecified Plan: Patient?requests?info?on?any?financial?assistance?or?Alex's.??I?referred?him?to?the?nurse?navigator?to?evaluate?for?services?or?resources. Orders: Orders XR thoracic spine 2V Today S29.019A - Strain of muscle and tendon of unspecified wall of thorax, initial encounter PT Evaluation and Treatment Today M25.559 - Pain in unspecified hip, S16.1XXA - Strain of muscle, fascia and tendon at neck level, initial encounter, S29.019A - Strain of muscle and tendon of unspecified wall of thorax, initial encounter Referrals Chiropractic Referral M25.559 - Pain in unspecified hip, S16.1XXA - Strain of muscle, fascia and tendon at neck level, initial encounter, S29.019A - Strain of muscle and tendon of unspecified wall of thorax, initial encounter Nurse Navigator Referral Z59.9 - Problem related to housing and economic circumstances, unspecified Medications: New diclofenac sodium 1% apply to single elbow, wrist or hand; for hand includes palm/fingers/back of hand 4 grams topical TID 200 grams 3RF 30 days Coding Level of Care Code Est Pt Level 4 (37624) Diagnoses Chronic pain syndrome G89.4 Spondylosis of cervical spine M47.812 Back pain M54.9
[2023-03-30 14:35] VITALS: BP 118/80; PULSE 67; O2SAT 98; BMI 25.0
== END 2023-03-30 15:10 | disposition home or self-care (01) ==
PROVIDERS: PCP Family Medicine; Visit Provider Family Medicine
DX: G89.4 Chronic pain syndrome (principal); M47.812 Spondylosis without myelopathy or radiculopathy, cervical region; M54.9 Dorsalgia, unspecified
CPT/HCPCS: 99214

== ENCOUNTER → 2023-04-20 08:40 | Outpatient (BNVA) | payer BC, SELFPAY | PROVIDERS: PCP Family Medicine; Visit Provider Anesthesiology ==

== ENCOUNTER 2023-04-20 08:41 | Outpatient (AMB) | payer BC, SELFPAY ==
[2023-04-20 08:49] VITALS: BP 111/66; PULSE 64; RESP 16; O2SAT 97; BMI 25.0
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
== END 2023-04-20 09:27 | disposition home or self-care (01) ==
PROVIDERS: PCP Family Medicine; Visit Provider Anesthesiology
DX: G89.4 Chronic pain syndrome (principal); M47.812 Spondylosis without myelopathy or radiculopathy, cervical region; F07.81 Postconcussional syndrome; R20.2 Paresthesia of skin; R53.83 Other fatigue; R51.9 Headache, unspecified; M79.18 Myalgia, other site
CPT/HCPCS: 99214

== ENCOUNTER 2023-06-26 13:57 | Outpatient (AMB) | payer OTHER, SELFPAY ==
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
[2023-06-26 14:05] VITALS: BP 110/70; PULSE 70; O2SAT 97; BMI 25.5
== END 2023-06-26 14:34 | disposition home or self-care (01) ==
PROVIDERS: PCP Family Medicine; Visit Provider Family Medicine
DX: Z00.00 Encounter for general adult medical examination without abnormal findings (principal); M54.2 Cervicalgia; M25.519 Pain in unspecified shoulder; K21.00 Gastro-esophageal reflux disease with esophagitis, without bleeding; S29.012A Strain of muscle and tendon of back wall of thorax, initial encounter
CPT/HCPCS: 99395

== ENCOUNTER 2023-07-05 08:06 | Outpatient (REF) | payer OTHER, SELFPAY ==
[2023-07-05 11:13] LABS: MANUAL DIFF FLAG NO
[2023-07-05 11:44] LABS: Appearance Urine Clear; Color Urine Yellow; Glucose Urine UA Negative (Negative); Leukocyte Esterase Urine Negative (Negative); Nitrite Urine Negative (Negative); PH 5.5 (5.0-9.0); Urine Blood Negative (Negative); Urine Ketones Negative (Negative); Urine Protein Negative (Neg-Trace)
[2023-07-05 11:48] LABS: Eosinophils Absolute Auto 0.1 X10*3/uL (0.0-0.4); Eosinophils Percent Auto 3.6 % (0-4); Hematocrit 43.5 % (42.0-52.0); Hemoglobin 14.7 g/dl (14.0-18.0); Imm Gran Abs Auto 0.01 X10*3/uL (0.00-0.03); Imm Gran Pct Auto 0.3 % (0.0-0.4); Lymphocytes Absolute Auto 1.5 X10*3/uL (1.2-4.9); Lymphocytes Percent Auto 37.8 % (20-40); Mean Corpuscular HGB Conc 33.8 g/dl (31.0-36.0); Mean Corpuscular Hemoglobin 28.1 pg (27.0-33.0); Mean Platelet Volume 12.2 fL (9.4-12.4); Monocytes Absolute Auto 0.4 X10*3/uL (0.1-1.2); Monocytes Percent Auto 10.2 % (2-11); Neutrophils Absolute Auto 1.8 x10*3/uL (2.0-8.3); Neutrophils Percent Auto 47.1 % (45-73); Platelet Count 211 X10*3/uL (160-400); Red Blood Count 5.24 X10*6/uL (4.60-5.80); Red Cell Distribution Width 14.8 % (11.0-16.0); White Blood Count 3.8 X10*3/uL (4.8-10.8)
[2023-07-05 12:33] LABS: Creatinine Urine 142.27 mg/dL; Microalbum/Creatinine Ratio Ur 4.2 ug/mg cr (<30)
[2023-07-05 12:49] LABS: Alanine Aminotransferase 44 U/L (0-40); Albumin Level 4.4 g/dL (3.5-5.0); Alkaline Phosphatase 66 U/L (39-117); Anion Gap 11 (12-20); Aspartate Amino Transferase 21 U/L (5-37); Bilirubin Total 0.5 mg/dL (0.0-1.0); Blood Urea Nitrogen 13 mg/dL (9-16); Calcium 9.6 mg/dL (8.4-10.2); Carbon Dioxide 27 mmol/L (22-29); Chloride 106 mmol/L (96-108); Cholesterol 170 mg/dL (<200); Estimated Glomerular Filt Rate > 60; Glucose Fasting 76 mg/dL (60-99); HDL Cholesterol 44 mg/dL (>40); LDL Cholesterol Calculated 113 mg/dL (<100); Sodium 140 mmol/L (135-145); TSH reflex Free T4 1.36 uIU/mL (0.32-4.0); Total Protein 7.6 g/dL (6.5-8.0); Triglycerides 68 mg/dL (<150)
[2023-07-05 13:03] LABS: Folate 13.9 ng/mL (> or = 4.0); Vitamin B12 439 pg/mL (200-900)
== END 2023-07-05 08:07 | disposition home or self-care (01) ==
LOC: HO.WFDLDS 08:06
PROVIDERS: Visit Provider Family Medicine
DX: Z00.00 Encounter for general adult medical examination without abnormal findings (principal); E53.8 Deficiency of other specified B group vitamins; I10 Essential (primary) hypertension
CPT/HCPCS: 36415; 80053; 80061; 81003; 82043; 82570; 82607; 82746; 84443; 85025

== ENCOUNTER → 2023-08-01 16:17 | Outpatient (AMB) | payer OTHER, SELFPAY ==
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
== END ==
PROVIDERS: PCP Family Medicine; Visit Provider Family Medicine
DX: R74.01 Elevation of levels of liver transaminase levels (principal); M54.2 Cervicalgia; S29.012A Strain of muscle and tendon of back wall of thorax, initial encounter
CPT/HCPCS: 99212

== ENCOUNTER 2023-08-09 08:40 | Outpatient (REF) | payer OTHER, SELFPAY ==
--- NOTE | ~2023-08-09 | XR_ITS ---
EXAMINATION: XR THORACIC SPINE XR CERVICAL SPINE XR RIGHT SHOULDER CLINICAL INFORMATION: Neck pain. COMPARISON: Right shoulder x-rays 12/12/2018 and MRI 01/18/2019. TECHNIQUE: 3 views of the thoracic spine. 3 views of the cervical spine. 2 views of the right shoulder. FINDINGS: RIGHT SHOULDER: Mild degenerative changes in the acromioclavicular joint. Glenohumeral alignment is preserved. No abnormal soft tissue calcifications identified adjacent to the humeral head. CERVICAL SPINE: Degenerative changes between the anterior arch of C1 and the odontoid. Mild grade 1 retrolisthesis of C4 and C5. Mild multilevel cervical spondylosis. Cervical disc space heights are preserved. THORACIC SPINE: Mild dextroscoliosis of the thoracic spine. Mild multilevel degenerative changes with hypertrophic change in the thoracic spine. Mild superior and inferior concavities of aib-hr-apapv thoracic vertebral bodies of indeterminate age and significance. Evaluation limited due to overlying soft tissues. XR/XR cervical spine 3V IMPRESSION: 1. Mild degenerative changes in the right acromioclavicular joint. 2. Mild multilevel cervical spondylosis. 3. Mild dextroscoliosis of the thoracic spine. Mild multilevel degenerative changes with hypertrophic change in the thoracic spine. Mild superior and inferior concavities of dzv-wb-ggubj thoracic vertebral bodies of indeterminate age and significance. Evaluation limited due to overlying soft tissues. MRI should be considered for further evaluation based on the clinical assessment.
--- NOTE | ~2023-08-09 | XR_ITS ---
EXAMINATION: XR THORACIC SPINE XR CERVICAL SPINE XR RIGHT SHOULDER CLINICAL INFORMATION: Neck pain. COMPARISON: Right shoulder x-rays 12/12/2018 and MRI 01/18/2019. TECHNIQUE: 3 views of the thoracic spine. 3 views of the cervical spine. 2 views of the right shoulder. FINDINGS: RIGHT SHOULDER: Mild degenerative changes in the acromioclavicular joint. Glenohumeral alignment is preserved. No abnormal soft tissue calcifications identified adjacent to the humeral head. CERVICAL SPINE: Degenerative changes between the anterior arch of C1 and the odontoid. Mild grade 1 retrolisthesis of C4 and C5. Mild multilevel cervical spondylosis. Cervical disc space heights are preserved. THORACIC SPINE: Mild dextroscoliosis of the thoracic spine. Mild multilevel degenerative changes with hypertrophic change in the thoracic spine. Mild superior and inferior concavities of ifs-em-bhpiu thoracic vertebral bodies of indeterminate age and significance. Evaluation limited due to overlying soft tissues. XR/XR shoulder RT min 2V IMPRESSION: 1. Mild degenerative changes in the right acromioclavicular joint. 2. Mild multilevel cervical spondylosis. 3. Mild dextroscoliosis of the thoracic spine. Mild multilevel degenerative changes with hypertrophic change in the thoracic spine. Mild superior and inferior concavities of yny-nf-jjhoi thoracic vertebral bodies of indeterminate age and significance. Evaluation limited due to overlying soft tissues. MRI should be considered for further evaluation based on the clinical assessment.
--- NOTE | ~2023-08-09 | XR_ITS ---
EXAMINATION: XR THORACIC SPINE XR CERVICAL SPINE XR RIGHT SHOULDER CLINICAL INFORMATION: Neck pain. COMPARISON: Right shoulder x-rays 12/12/2018 and MRI 01/18/2019. TECHNIQUE: 3 views of the thoracic spine. 3 views of the cervical spine. 2 views of the right shoulder. FINDINGS: RIGHT SHOULDER: Mild degenerative changes in the acromioclavicular joint. Glenohumeral alignment is preserved. No abnormal soft tissue calcifications identified adjacent to the humeral head. CERVICAL SPINE: Degenerative changes between the anterior arch of C1 and the odontoid. Mild grade 1 retrolisthesis of C4 and C5. Mild multilevel cervical spondylosis. Cervical disc space heights are preserved. THORACIC SPINE: Mild dextroscoliosis of the thoracic spine. Mild multilevel degenerative changes with hypertrophic change in the thoracic spine. Mild superior and inferior concavities of rrn-ca-hgwbn thoracic vertebral bodies of indeterminate age and significance. Evaluation limited due to overlying soft tissues. XR/XR thoracic spine 2V IMPRESSION: 1. Mild degenerative changes in the right acromioclavicular joint. 2. Mild multilevel cervical spondylosis. 3. Mild dextroscoliosis of the thoracic spine. Mild multilevel degenerative changes with hypertrophic change in the thoracic spine. Mild superior and inferior concavities of bss-au-nkobk thoracic vertebral bodies of indeterminate age and significance. Evaluation limited due to overlying soft tissues. MRI should be considered for further evaluation based on the clinical assessment.
== END 2023-08-09 08:41 | disposition home or self-care (01) ==
LOC: HO.HOSX 08:40
PROVIDERS: PCP Family Medicine; Visit Provider Physical Medicine & Rehabilitation
DX: M54.2 Cervicalgia (principal); M25.511 Pain in right shoulder; M79.18 Myalgia, other site
CPT/HCPCS: 72040; 72070; 73030; 99202

== ENCOUNTER 2023-08-09 08:40 | Outpatient (AMB) | payer OTHER, SELFPAY ==
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
[2023-08-09 08:52] VITALS: BMI 25.5
== END 2023-08-09 14:30 | disposition home or self-care (01) ==
PROVIDERS: PCP Family Medicine; Visit Provider Physical Medicine & Rehabilitation
DX: M79.18 Myalgia, other site (principal)
CPT/HCPCS: 99203

== ENCOUNTER 2023-08-30 11:56 | Outpatient (AMB) | payer OTHER, SELFPAY ==
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
[2023-08-30 12:06] VITALS: BMI 25.5
== END 2023-08-30 12:30 | disposition home or self-care (01) ==
PROVIDERS: PCP Family Medicine; Visit Provider Physical Medicine & Rehabilitation
DX: M79.18 Myalgia, other site (principal)
CPT/HCPCS: 99215

== ENCOUNTER → 2023-08-30 11:56 | Outpatient (BNVA) | payer OTHER, SELFPAY | PROVIDERS: PCP Family Medicine; Visit Provider Physical Medicine & Rehabilitation | DX: M79.18 Myalgia, other site (principal) | CPT/HCPCS: 99212 ==

== ENCOUNTER 2023-09-20 07:52 | Outpatient (REF) | payer OTHER, SELFPAY ==
--- NOTE | ~2023-09-20 | XR_ITS ---
EXAMINATION: XR KNEE, RIGHT CLINICAL INFORMATION: Primary osteoarthritis right knee. COMPARISON: None available. TECHNIQUE: Single standing view both knees with 2 additional views of the right knee. FINDINGS: There is mild narrowing of both medial compartments. Lateral and patellofemoral compartments appear normal. Tiny right joint effusion is present. No chondrocalcinosis, fractures or dislocations XR/XR knee RT 3V IMPRESSION: Mild narrowing of both medial compartments with tiny right joint effusion.
== END 2023-09-20 07:53 | disposition home or self-care (01) ==
LOC: HO.HOSX 07:52
PROVIDERS: Visit Provider Physician Assistant
DX: M17.11 Unilateral primary osteoarthritis, right knee (principal); M22.41 Chondromalacia patellae, right knee
CPT/HCPCS: 73562; 99212

== ENCOUNTER 2023-09-20 10:11 | Outpatient (AMB) | payer OTHER, SELFPAY ==
[2023-09-20 10:18] VITALS: BMI 25.5
--- NOTE | 2023-09-20 10:18 | A.OFFVIS_ITS ---
Vital Signs 09/20/23 10:18 Height 5 ft 5 in Weight 153 lb BMI 25.5 Intake Visit Reasons: Newprob- Right knee pain Intake Note: Jesus is a 33 year old male who presents today for a evaluation of his right knee pain. Patient reports off and on pain for about 2 years. He states that pain has been getting worse through out the day. Patient states hearing a cracking sound. He expresses that both of his knee hurt, however his right knee is causing the most pain. His pain is on the medial aspect of the knee and on the lateral aspect behind the knee. Allergies amoxicillin [AMOXICILLIN] Allergy (Mild, Verified 09/20/23 10:23) patient got sick with chills omeprazole [OMEPRAZOLE] Adverse Reaction (Severe, Verified 09/20/23 10:23) gi upset with diarrhea ibuprofen [IBUPROFEN] Adverse Reaction (Mild, Verified 09/20/23 10:23) STOMACH UPSET Medication List - Last Reconciled 09/20/23 by Tiara Pearson PA-C No Known Home Meds HPI HPI Newprob- Right knee pain: Details: 33-year-old male who presents to the office today for evaluation of right knee pain for 2 years. He states he has intermittent pain at the medial and lateral aspect of his bilateral knees that is worse on his right knee. His pain is aggravated throughout the day. He also experiences cracking with twisting and pivoting motions. His job requires to perform a lot of kneeling. [facility] Surgical History Hx of endoscopy Family History Father Medical history unknown Mother No problems noted. 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 Current occupational exposures/hazards: No Cognitive needs: No Hearing needs: No Vision needs: No Review of Systems Const All systems reviewed & are unremarkable except as noted in HPI and below Physical Exam Vital Signs: BMI result Body Mass Index 25.5 Const General: cooperative, healthy appearing, comfortable, no acute distress, well developed and alert Orientation/consciousness: patient oriented x3 HEENT Head: Yes normal to inspection, Yes normocephalic and Yes atraumatic Eyes General: appearance normal, both eyes and all related structures Resp Effort & Inspection: normal respiratory effort and able to speak in complete sentences Cardio Rate: regular rate Peripheral pulses: Peripheral pulses 2+ throughout GI Palpation (GI): Soft to palpation Skin Lesions: no lesions Rashes: no rashes Neuro General: patient oriented x3 Extrem Other: Right knee: Skin intact, no erythema or joint effusion. Tenderness along the lateral retropatellar tenderness present with pain along the IT band. Full ROM with crepitus. Negative Sabi?s. No ligamentous laxity. NVI. Results Reviewed Results Reviewed: Xrays were obtained in the office today and personally reviewed by me of the right knee are negative for acute fracture / dislocations. Assessment & Plan Assessment & Plan (1) Chondromalacia of right patellofemoral joint: Code(s): M22.41 - Chondromalacia patellae, right knee Category: Medical Plan We discussed options which include physical therapy which she would like to hold off at this time as he goes to the gym. He will do exercises for glute strengthening and hip mobility. If symptoms persist or worsen, he will contact the office, otherwise follow-up as needed. Orders: Orders XR knee RT 3V Today M17.11 - Unilateral primary osteoarthritis, right knee Patient Instructions: Scribed for Tiara Pearson PA-C, by Florencio Sarah emergency medical dispatcher, on 09/20/2023 at 10:15 AM EST.? I, Tiara Pearson PA-C, have personally reviewed and agree with the information entered by the scribe. Coding Level of Care Code New Pt Level 3 (44426) Diagnoses Chondromalacia of right patellofemoral joint M22.41
== END 2023-09-20 10:48 | disposition home or self-care (01) ==
PROVIDERS: PCP Family Medicine; Visit Provider Physician Assistant
DX: M22.41 Chondromalacia patellae, right knee (principal)
CPT/HCPCS: 99213

== ENCOUNTER 2023-10-18 10:07 | Outpatient (AMB) | payer OTHER, SELFPAY ==
--- NOTE | 2023-10-18 10:08 | MHC.OFFVIS ---
Vital Signs 10/18/23 10:11 Height 5 ft 5 in Weight 157 lb BMI 26.1 Handedness Right Intake Visit Reasons: O/V rt trapezius/rhomboids trig #1 Intake Note: Jesus is a 33 year old male who presents today for a right trapezius/rhomboids trigger injection #1. Allergies amoxicillin [AMOXICILLIN] Allergy (Mild, Verified 10/18/23 10:11) patient got sick with chills omeprazole [OMEPRAZOLE] Adverse Reaction (Severe, Verified 10/18/23 10:11) gi upset with diarrhea ibuprofen [IBUPROFEN] Adverse Reaction (Mild, Verified 10/18/23 10:11) STOMACH UPSET Medication List - Last Reconciled 10/18/23 by Caro Alexandra MD No Known Home Meds HPI Comments Details: Here for 1st trigger point injection. Doing better after deep tissue massage few days ago. Pain is right scapular area. PFSH Surgical History Hx of endoscopy Family History Father Medical history unknown Mother No problems noted. 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 Conset obtained. Trigger points palpated, one on right upper trapezius, 2 on right rhomboids. 1 ml of 2% Lidocaine injected in each site, total of 3 mL. Patient tolerated procedure well. Post-injection instructions given. 26414-Iugtnor Point Injection =/>3 sites All charges added?: Procedure code (CPT) selection complete Assessment & Plan Assessment & Plan (1) Myofascial pain: Code(s): M79.18 - Myalgia, other site Category: Medical Plan Tolerated procedure well. Post-injection instructions given. Assessment and plan discussed with patient, and patient was agreeable. All questions were answered thoroughly. Caro Alexandar MD, MO[place] Board Certified, [place] Board [employer] and Rehabilitation (ABPMR) Board Certified, [place] Board of Electrodiagnostic [employer] (ABEM) Orders: Orders Trigger Point Injection Today M79.18 - Myalgia, other site Coding Level of Care Code Procedure Only Diagnoses Myofascial pain M79.18 CPT Codes Therapeutic Injection - Ther Injection 2: 95528-Rzizmeb Point Injection =/>3 sites ([id number])
[2023-10-18 10:11] VITALS: BMI 26.1
== END 2023-10-18 10:32 | disposition home or self-care (01) ==
PROVIDERS: PCP Family Medicine; Visit Provider Physical Medicine & Rehabilitation
DX: M79.18 Myalgia, other site (principal); Z04.3 Encounter for examination and observation following other accident
CPT/HCPCS: 20553

== ENCOUNTER → 2023-10-18 10:07 | Outpatient (BNVA) | payer OTHER, SELFPAY | PROVIDERS: PCP Family Medicine; Visit Provider Physical Medicine & Rehabilitation | DX: M79.18 Myalgia, other site (principal) | CPT/HCPCS: 20553 ==

== ENCOUNTER 2023-10-25 10:26 | Outpatient (AMB) | payer OTHER, SELFPAY ==
--- NOTE | 2023-10-25 10:49 | MHC.OFFVIS ---
Intake Visit Reasons: O/V rt trapezius/rhomboids trig #2 Intake Note: Jesus is a 33 year old male who presents to the office today for a right trapezius/rhomboid trigger point injection #2. Patient reports that the injections worked well, he is having spasms a bit lower on the right side that he is hoping to have targeted today. Allergies amoxicillin [AMOXICILLIN] Allergy (Mild, Verified 10/25/23 11:12) patient got sick with chills omeprazole [OMEPRAZOLE] Adverse Reaction (Severe, Verified 10/25/23 11:12) gi upset with diarrhea ibuprofen [IBUPROFEN] Adverse Reaction (Mild, Verified 10/25/23 11:12) STOMACH UPSET Medication List - Last Reconciled 10/25/23 by Caro Alexandra MD No Known Home Meds HPI Comments Details: He did well after 1st trigger point injections last week. Had improvement for at least 1 day. But he noticed more pain below right scapula, especially in the morning when he wakes up. Described as spasms. Deep tissue massage and regular massage have helped. [facility] Surgical History Hx of endoscopy Family History Father Medical history unknown Mother No problems noted. 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 Conset obtained. Trigger points palpated on right upper trapezius, right rhomboids, right latissimus dorsi. 1 ml of 2% Lidocaine injected in each site, total of 3 mL. Patient tolerated procedure well. Post-injection instructions given. 79653-Gdmovah Point Injection =/>3 sites All charges added?: Procedure code (CPT) selection complete Assessment & Plan Assessment & Plan (1) Myofascial pain: Code(s): M79.18 - Myalgia, other site Category: Medical Plan Added injection to right latissimus dorsi today. Patient tolerated procedure well. Post-injection instructions given. Assessment and plan discussed with patient, and patient was agreeable. All questions were answered thoroughly. Caro Alexandra MD, MODESTO Board Certified, [place] [employer] and Rehabilitation (ABPMR) Board Certified, [place] Board [employer] Electrodiagnostic Medicine (ABEM) Orders: Orders Trigger Point Injection Today M79.18 - Myalgia, other site Coding Level of Care Code Procedure Only Diagnoses Myofascial pain M79.18 CPT Codes Therapeutic Injection - Ther Injection 2: 04140-Ogdybgw Point Injection =/>3 sites ([id number])
== END 2023-10-25 11:18 | disposition home or self-care (01) ==
LOC: HO.HOS 10:26
PROVIDERS: PCP Family Medicine; Visit Provider Physical Medicine & Rehabilitation
DX: M79.18 Myalgia, other site (principal)
CPT/HCPCS: 20553

== ENCOUNTER → 2023-10-25 10:26 | Outpatient (BNVA) | payer OTHER, SELFPAY | PROVIDERS: PCP Family Medicine; Visit Provider Physical Medicine & Rehabilitation | DX: M79.18 Myalgia, other site (principal) | CPT/HCPCS: 20553 ==

== ENCOUNTER 2023-11-01 08:56 | Outpatient (AMB) | payer OTHER, SELFPAY ==
--- NOTE | 2023-11-01 09:11 | MHC.OFFVIS ---
Vital Signs 11/01/23 09:12 Height 5 ft 5 in Weight 157 lb BMI 26.1 Intake Visit Reasons: O/V rt trapezius/rhomboids trig #3 Intake Note: Jesus is a 33 year old male who presents to the office today for a right trapezius/rhomboids trigger injection #3. Patient states that he is having continued pain and muscle spasms on the right side. Muscles spasms are felt mostly at the end of the day and in the morning upon waking. He is feeling frustraed with his continued pain. Allergies amoxicillin [AMOXICILLIN] Allergy (Mild, Verified 11/01/23 09:12) patient got sick with chills omeprazole [OMEPRAZOLE] Adverse Reaction (Severe, Verified 11/01/23 09:12) gi upset with diarrhea ibuprofen [IBUPROFEN] Adverse Reaction (Mild, Verified 11/01/23 09:12) STOMACH UPSET PFSH Surgical History Hx of endoscopy Family History Father Medical history unknown Mother No problems noted. 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 Conset obtained. Trigger points palpated, 2 on right upper trapezius and right on right rhomboids. 1 ml of 2% Lidocaine injected in each site, total of 3 mL. Patient tolerated procedure well. Post-injection instructions given. 01220-Mztlnsj Point Injection 3 or more All charges added?: Procedure code (CPT) selection complete Assessment & Plan Assessment & Plan (1) Myofascial pain: Code(s): M79.18 - Myalgia, other site Category: Medical Plan This is his 3rd trigger point injection. Noted that his pain moves from rhomboids to latissimus dorsi, but constantly in right upper trapezius. Tenderness today was focal in right upper trapezius and rhomboids toe not a lot of palpable trigger points anymore. No tenderness or palpable trigger points and latissimus Dick today. No signs of cervical radiculopathy or myelopathy. Is not sure about the benefit of the trigger point injections so far. Suggested to schedule 3 more inpatient eager to proceed. Note also that deep tissue massage has helped him in the past, further suggesting that this is really myofascial. Encouraged to start working out but do not do heavy weights for now. Gradual start and do not overdo. Assessment and plan discussed with patient, and patient was agreeable. All questions were answered thoroughly. Caro Alexandra MD, MODESTO Board Certified, [place] [employer] and Rehabilitation (ABPMR) Board Certified, [place] Board [employer] Electrodiagnostic Medicine (ABEM) Orders: Orders AMB Trigger Point Injection Today M79.18 - Myalgia, other site Coding Level of Care Code Procedure Only Diagnoses Myofascial pain M79.18 CPT Codes Therapeutic Injection - Ther Injection 2: 76048-Izzixrk Point Injection 3 or more ([id number])
[2023-11-01 09:12] VITALS: BMI 26.1
== END 2023-11-01 09:30 | disposition home or self-care (01) ==
PROVIDERS: PCP Family Medicine; Visit Provider Physical Medicine & Rehabilitation
DX: M79.18 Myalgia, other site (principal); M25.511 Pain in right shoulder
CPT/HCPCS: 20553

== ENCOUNTER → 2023-11-01 08:56 | Outpatient (BNVA) | payer OTHER, SELFPAY | PROVIDERS: PCP Family Medicine; Visit Provider Physical Medicine & Rehabilitation | DX: M79.18 Myalgia, other site (principal) | CPT/HCPCS: 20553 ==

== ENCOUNTER 2023-12-13 08:45 | Outpatient (AMB) | payer OTHER, SELFPAY ==
--- NOTE | 2023-12-13 08:55 | A.OFFVIS_ITS ---
Intake Visit Reasons: O/V rt trapezius/rhomboids trig #2 Intake Note: Jesus is a 33 year old male who presents to the office today for a right trapezius/rhomboids trigger injection #4 Allergies amoxicillin [AMOXICILLIN] Allergy (Mild, Verified 12/13/23 08:56) patient got sick with chills omeprazole [OMEPRAZOLE] Adverse Reaction (Severe, Verified 12/13/23 08:56) gi upset with diarrhea ibuprofen [IBUPROFEN] Adverse Reaction (Mild, Verified 12/13/23 08:56) STOMACH UPSET HPI HPI O/V rt trapezius/rhomboids trig #2: Details: Jesus is a 33 year old male who presents to the office today for a right trapezius/rhomboids trigger injection #4 HPI Comments Details: Here for another round of trigger point injections. Continues to have right- sided scapular pain, more so than the upper back/trapezius pain. Denies numbness or weakness on right upper extremity. PFSH Surgical History Hx of endoscopy Family History Father Medical history unknown Mother No problems noted. 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 Patient was appropriately conversant and oriented. Good historian. MSK: Inspection reveals appropriate head and neck positioning. Tender on right upper trapezius, right rhomboids. Cervical ROM was full. Spurling's sign negative. Negative Cornejo sign. Negative empty can sign. Negative speed's test. Neurological: Neurologic examination of the upper and lower extremities was nonfocal with intact sensation, muscle stretch reflexes and without focal motor deficits . Goode?s negative bilaterally. Gait is non-antalgic without loss of balance. Office Procedures Therapeutic Injection Therapeutic Injection Details: Trigger point injection, right upper trapezius and right rhomboids. Conset obtained. Trigger points palpated, 2 on right upper trapezius, 2 on right rhomboids. 1 ml of 2% Lidocaine injected in each site, total of 4 mL. Patient tolerated procedure well. Post-injection instructions given. 71422-Vfaycsv Point Injection 3 or more All charges added?: Procedure code (CPT) selection complete Results Reviewed Results Reviewed: Ordering Physician: Caro Roque Date of Service: 08/09/23 Procedure(s): XR thoracic spine 2V Accession Number(s): [id number] cc: Montrell Wen MD; Caro Roque~ EXAMINATION: XR THORACIC SPINE XR CERVICAL SPINE XR RIGHT SHOULDER CLINICAL INFORMATION: Neck pain. COMPARISON: Right shoulder x-rays 12/12/2018 and MRI 01/18/2019. TECHNIQUE: 3 views of the thoracic spine. 3 views of the cervical spine. 2 views of the right shoulder. FINDINGS: RIGHT SHOULDER: Mild degenerative changes in the acromioclavicular joint. Glenohumeral alignment is preserved. No abnormal soft tissue calcifications identified adjacent to the humeral head. CERVICAL SPINE: Degenerative changes between the anterior arch of C1 and the odontoid. Mild grade 1 retrolisthesis of C4 and C5. Mild multilevel cervical spondylosis. Cervical disc space heights are preserved. THORACIC SPINE: Mild dextroscoliosis of the thoracic spine. Mild multilevel degenerative changes with hypertrophic change in the thoracic spine. Mild superior and inferior concavities of hcg-gg-vuzww thoracic vertebral bodies of indeterminate age and significance. Evaluation limited due to overlying soft tissues. XR/XR thoracic spine 2V IMPRESSION: 1. Mild degenerative changes in the right acromioclavicular joint. 2. Mild multilevel cervical spondylosis. 3. Mild dextroscoliosis of the thoracic spine. Mild multilevel degenerative changes with hypertrophic change in the thoracic spine. Mild superior and inferior concavities of wgy-ni-apsnj thoracic vertebral bodies of indeterminate age and significance. Evaluation limited due to overlying soft tissues. MRI should be considered for further evaluation based on the clinical assessment. Reviewed notes from PCP and pain management. Assessment & Plan Assessment & Plan (1) Thoracic spondylosis: Code(s): M47.814 - Spondylosis without myelopathy or radiculopathy, thoracic region Category: Medical Plan Patient tolerated trigger point injections today without complication. Patient had undergone adequate conservative management without improvement of condition. It would be reasonable to obtain further imaging such as MRI. An MRI would help rule out any serious condition, guide treatment and assess prognosis for recovery. Specifically ruling out right-sided thoracic disc herniation. Patient would also like to be seen for knee pain. We will schedule for appointment. Assessment and plan discussed with patient, and patient was agreeable. All questions were answered thoroughly. Caro Alexandra MD, MODE[place] Board Certified, [place] Board [employer] Medicine and Rehabilitation (ABPMR) Board Certified, [place] Board [employer] Electrodiagnostic Medicine (ABEM) Orders: Orders MR thoracic spine wo con Today M47.814 - Spondylosis without myelopathy or radiculopathy, thoracic region AMB Trigger Point Injection Today M79.18 - Myalgia, other site Coding Level of Care Code Est Pt Level 4 (50030) Diagnoses Thoracic spondylosis M47.814 CPT Codes Therapeutic Injection - Ther Injection 2: 72080-Ugsvhwg Point Injection 3 or more ([id number])
== END 2023-12-13 09:12 | disposition home or self-care (01) ==
PROVIDERS: PCP Family Medicine; Visit Provider Physical Medicine & Rehabilitation
DX: M47.814 Spondylosis without myelopathy or radiculopathy, thoracic region (principal)
CPT/HCPCS: 20553

== ENCOUNTER → 2023-12-13 08:45 | Outpatient (BNVA) | payer OTHER, SELFPAY | PROVIDERS: PCP Family Medicine; Visit Provider Physical Medicine & Rehabilitation | DX: M47.814 Spondylosis without myelopathy or radiculopathy, thoracic region (principal); M79.18 Myalgia, other site | CPT/HCPCS: 20553 ==

== ENCOUNTER 2023-12-19 08:39 | Outpatient (AMB) | payer OTHER, SELFPAY ==
--- NOTE | 2023-12-19 08:46 | MHC.OFFVIS ---
Intake Visit Reasons: O/V rt trapezius/rhomboids trig #1 Intake Note: Pt presents to the office today for a right trapezius/rhomboids trigger injection #1. Allergies amoxicillin [AMOXICILLIN] Allergy (Mild, Verified 12/19/23 08:54) patient got sick with chills omeprazole [OMEPRAZOLE] Adverse Reaction (Severe, Verified 12/19/23 08:54) gi upset with diarrhea ibuprofen [IBUPROFEN] Adverse Reaction (Mild, Verified 12/19/23 08:54) STOMACH UPSET HPI Comments Details: Still in constant pain, same areas. Although trigger points on trapezius and rhomboids are not as tight on palpation. PFSH Surgical History Hx of endoscopy Family History Father Medical history unknown Mother No problems noted. 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 Conset obtained. Trigger points palpated, 2 on on right rhomboids, 1 on right upper trapezius. 1 ml of 2% Lidocaine injected in each site, total of 3 mL. Patient tolerated procedure well. Post-injection instructions given. 94119-Owbwrmx Point Injection 3 or more All charges added?: Procedure code (CPT) selection complete Assessment & Plan Assessment & Plan (1) Thoracic spondylosis: Code(s): M47.814 - Spondylosis without myelopathy or radiculopathy, thoracic region Category: Medical (2) Myofascial pain: Code(s): M79.18 - Myalgia, other site Category: Medical Plan We will continue trigger point injections as scheduled. While awaiting thoracic MRI. Assessment and plan discussed with patient, and patient was agreeable. All questions were answered thoroughly. Caro Alexandra MD, MO[place] Board Certified, [place] Board [employer] Physical Medicine and Rehabilitation (ABPMR) Board Certified, [place] Board [employer] Electrodiagnostic Medicine (ABEM) Orders: Orders AMB Trigger Point Injection Today M79.18 - Myalgia, other site Coding Level of Care Code Procedure Only Diagnoses Thoracic spondylosis M47.814 Myofascial pain M79.18 CPT Codes Therapeutic Injection - Ther Injection 2: 70148-Agtrvtc Point Injection 3 or more ([id number])
== END 2023-12-19 09:14 | disposition home or self-care (01) ==
PROVIDERS: PCP Family Medicine; Visit Provider Physical Medicine & Rehabilitation
DX: M79.18 Myalgia, other site (principal); M47.814 Spondylosis without myelopathy or radiculopathy, thoracic region
CPT/HCPCS: 20553

== ENCOUNTER → 2023-12-19 08:39 | Outpatient (BNVA) | payer OTHER, SELFPAY | PROVIDERS: PCP Family Medicine; Visit Provider Physical Medicine & Rehabilitation | DX: M47.814 Spondylosis without myelopathy or radiculopathy, thoracic region (principal); M79.18 Myalgia, other site | CPT/HCPCS: 20553 ==

== ENCOUNTER 2023-12-27 13:04 | Outpatient (AMB) | payer OTHER, SELFPAY ==
--- NOTE | 2023-12-27 13:05 | A.OFFVIS_ITS ---
Intake Visit Reasons: O/V rt trapezius/rhomboids trig #6 Intake Note: Jesus is a 33 year old male who presents to the office today for a right trapezius/rhomboids trigger injection #6. Allergies amoxicillin [AMOXICILLIN] Allergy (Mild, Verified 12/27/23 13:05) patient got sick with chills omeprazole [OMEPRAZOLE] Adverse Reaction (Severe, Verified 12/27/23 13:05) gi upset with diarrhea ibuprofen [IBUPROFEN] Adverse Reaction (Mild, Verified 12/27/23 13:05) STOMACH UPSET Medication List - Last Reconciled 12/27/23 by Caro Alexandra MD No Known Home Meds HPI Comments Details: Continues to have the same pain on right upper back area despite trigger point injections. MRI thoracic spine was approved but await scheduling. [facility] Surgical History Hx of endoscopy Family History Father Medical history unknown Mother No problems noted. 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 Office Procedures Therapeutic Injection Therapeutic Injection Details: Trigger point injection, right upper trapezius and rhomboids.. Conset obtained. Tender areas injected, 1 on upper trapezius and 1 on right rhomboids. 1 ml of 2% Lidocaine injected in each site, total of 2 mL. Patient tolerated procedure well. Post-injection instructions given. 52987-Wwdovsl Point Injection 1 or 2 sites All charges added?: Procedure code (CPT) selection complete Assessment & Plan Assessment & Plan (1) Myofascial pain: Code(s): M79.18 - Myalgia, other site Category: Medical Plan I think that the trigger points that he started with are all resolved by now, after all the trigger point injections. But he continues to have that chronic right-sided upper back pain. Waiting for thoracic MRI to be scheduled and done. Assessment and plan discussed with patient, and patient was agreeable. All questions were answered thoroughly. Follow up after thoracic MRI. Caro Alexandra MD, MODESTO Board Certified, [place] Board [employer] Medicine and Rehabilitation (ABPMR) Board Certified, [place] Board of Electrodiagnostic Medicine (ABEM) Orders: Orders AMB Trigger Point Injection Today M79.18 - Myalgia, other site Coding Level of Care Code Procedure Only Diagnoses Myofascial pain M79.18 CPT Codes Therapeutic Injection - Ther Injection 1: 00376-Bhwakid Point Injection 1 or 2 sites ([id number])
== END 2023-12-27 13:23 | disposition home or self-care (01) ==
PROVIDERS: PCP Family Medicine; Visit Provider Physical Medicine & Rehabilitation
DX: M79.18 Myalgia, other site (principal); M25.511 Pain in right shoulder
CPT/HCPCS: 20552

== ENCOUNTER → 2023-12-27 13:04 | Outpatient (BNVA) | payer OTHER, SELFPAY | PROVIDERS: PCP Family Medicine; Visit Provider Physical Medicine & Rehabilitation ==

== ENCOUNTER 2023-12-27 14:18 | Outpatient (REF) | payer OTHER, SELFPAY ==
--- NOTE | ~2023-12-27 | MR_ITS ---
EXAMINATION: MR THORACIC SPINE WITHOUT CONTRAST CLINICAL INFORMATION: Spondylosis without myelopathy or radiculopathy, thoracic region COMPARISON: None available. TECHNIQUE: MRI of the thoracic spine was obtained using routine sequences without contrast. FINDINGS: Preservation of the normal thoracic kyphosis. No listhesis. Chronic appearing compression fracture deformity of T4 with less than 20% vertebral body height loss anteriorly. The remaining vertebral body heights are preserved. Multilevel disc desiccation without significant disc height loss. Multilevel endplate osteophytosis. Schmorl's nodes at T11-12. The visualized spinal cord is normal in caliber. No abnormal cord signal. No significant disc herniation, spinal canal stenosis, or neural foraminal narrowing throughout the thoracic spine. The paravertebral soft tissues are unremarkable. The imaged intrathoracic and intra-abdominal structures are grossly within normal limits. MR/MR thoracic spine wo con IMPRESSION: 1. No significant disc herniation, spinal canal stenosis, or neural foraminal narrowing throughout the thoracic spine. 2. Chronic-appearing compression fracture deformity of T4 with less than 20% vertebral body height loss anteriorly. Electronically signed by: Andres Perry MD 01/26/2024 12:12 PM EDT
== END 2023-12-27 14:19 | disposition home or self-care (01) ==
LOC: HO.MRI 14:18
PROVIDERS: Visit Provider Physical Medicine & Rehabilitation
DX: M47.814 Spondylosis without myelopathy or radiculopathy, thoracic region (principal)
CPT/HCPCS: 20552; 72146

== ENCOUNTER 2024-01-10 10:01 | Outpatient (AMB) | payer OTHER, SELFPAY ==
--- NOTE | 2024-01-10 10:02 | A.OFFVIS_ITS ---
Intake Visit Reasons: Follow up knee pain Intake Note: Jesus is a 33 year old male who presents to the office today for a follow up for his knee pain. Pt states he has been doing excercises at the gymt o try and help his knee but states he is still having the cracking sound and some pain. Pt states his biggest concern is the cracking sound in his knee. Pt states he has pain if he was to kneel down but states walking isn't painful. Allergies amoxicillin [AMOXICILLIN] Allergy (Mild, Verified 01/10/24 10:04) patient got sick with chills omeprazole [OMEPRAZOLE] Adverse Reaction (Severe, Verified 01/10/24 10:04) gi upset with diarrhea ibuprofen [IBUPROFEN] Adverse Reaction (Mild, Verified 01/10/24 10:04) STOMACH UPSET Medication List - Last Reconciled 01/10/24 by Tiara Pearson PA-C No Known Home Meds HPI HPI Follow up knee pain: Details: 33-year-old male who returns to the office today for a follow-up of right knee pain. He continues to have cracking sound and pain in his knee. His pain is aggravated with kneeling down. He denies pain with ambulation. He has been working on exercises at gym as instructed. He has no other concerns today. PFSH Surgical History Hx of endoscopy Family History Father Medical history unknown Mother No problems noted. 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 Current occupational exposures/hazards: No Cognitive needs: No Hearing needs: No Vision needs: No Review of Systems Const All systems reviewed & are unremarkable except as noted in HPI and below Physical Exam Const General: cooperative, healthy appearing, comfortable, no acute distress, well de veloped and alert Orientation/consciousness: patient oriented x3 HEENT Head: Yes normal to inspection, Yes normocephalic and Yes atraumatic Eyes General: appearance normal, both eyes and all related structures Resp Effort & Inspection: normal respiratory effort and able to speak in complete sentences Cardio Rate: regular rate Peripheral pulses: Peripheral pulses 2+ throughout GI Palpation (GI): Soft to palpation Skin Lesions: no lesions Rashes: no rashes Neuro General: patient oriented x3 Extrem Other: Right knee: Skin intact, no erythema or joint effusion. Tenderness along the lateral retropatellar tenderness present with pain along the IT band. Full ROM with crepitus. Negative Sabi?s. No ligamentous laxity. NVI. Assessment & Plan Assessment & Plan (1) Chondromalacia of right patellofemoral joint: Code(s): M22.41 - Chondromalacia patellae, right knee Category: Medical Plan We discussed options which include PT, NSAIDs and injections. The patient will defer on the injection today and proceed with PT and NSAIDs. If symptoms persist, she will contact me for an injection, otherwise, PRN. Orders: Orders PT Evaluation and Treatment Today M22.41 - Chondromalacia patellae, right knee Patient Instructions: Scribed for Tiara Pearson PA-C, by Florencio Sarah medical customer service representative, on 01/10/2024 at 10:15 AM EST.? I, Tiara Pearson PA-C, have personally reviewed and agree with the information entered by the scribe. Coding Level of Care Code Est Pt Level 3 (55778) Complex EM visit Add On G2211 Diagnoses Chondromalacia of right patellofemoral joint M22.41
== END 2024-01-10 10:19 | disposition home or self-care (01) ==
PROVIDERS: PCP Family Medicine; Visit Provider Physical Medicine & Rehabilitation
DX: M22.41 Chondromalacia patellae, right knee (principal)
CPT/HCPCS: 99213; G2211

== ENCOUNTER → 2024-01-10 10:01 | Outpatient (BNVA) | payer OTHER, SELFPAY | PROVIDERS: PCP Family Medicine; Visit Provider Physical Medicine & Rehabilitation | DX: M22.41 Chondromalacia patellae, right knee (principal) | CPT/HCPCS: 99212 ==

== ENCOUNTER 2024-01-31 11:51 | Outpatient (AMB) | payer OTHER, SELFPAY ==
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
== END 2024-01-31 12:19 | disposition home or self-care (01) ==
PROVIDERS: PCP Family Medicine; Visit Provider Physical Medicine & Rehabilitation
DX: M79.18 Myalgia, other site (principal); M54.6 Pain in thoracic spine; G89.29 Other chronic pain
CPT/HCPCS: 99213

== ENCOUNTER → 2024-01-31 11:51 | Outpatient (BNVA) | payer OTHER, SELFPAY | PROVIDERS: PCP Family Medicine; Visit Provider Physical Medicine & Rehabilitation | DX: M79.18 Myalgia, other site (principal); M54.6 Pain in thoracic spine; G89.29 Other chronic pain | CPT/HCPCS: 99212 ==

== ENCOUNTER 2024-03-12 11:00 | Outpatient (RCR) | payer OTHER, SELFPAY ==
--- NOTE | 2024-02-15 12:41 | MHC.PT.DC ---
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 He presents to PT with current impairments in pain, decreased quad strength, decreased hip/glute strength, decreased muscle length, soft tissue restrictions and impaired mechanics. He is limited functionally by squatting, bending/straightening his knee, and his exercise routine. He is an excellent candidate for skilled PT in order to address current impairments to facilitate return to PLOF. He is recommended to be seen 2x/week for 4 weeks and will be reassessed at that time Electronically signed by: Please sign and return to therapist. Thank you for your referral.
--- NOTE | 2024-05-20 15:06 | MHC.PT.DC ---
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 He had 4 cancellations since SOC including 3 cancellations for his last 3 scheduled appointments. He is being D/C from skilled PT as he has not attended or called to reschedule in > 30 days. Pt current level of function unknown at this time Electronically signed by: Yessica Luis, PT, DPT Please sign and return to therapist. Thank you for your referral.
== END 2024-05-20 15:06 | disposition home or self-care (01) ==
LOC: HO.PT 11:00
PROVIDERS: PCP Family Medicine; Visit Provider Physician Assistant
DX: M22.41 Chondromalacia patellae, right knee (principal)
CPT/HCPCS: 97110; 97112; 97140; 97161

== ENCOUNTER 2024-06-12 11:48 | Outpatient (AMB) | payer OTHER, SELFPAY ==
--- NOTE | 2024-06-12 12:09 | A.OFFPC_ITS ---
Vital Signs 06/12/24 12:14 Height 5 ft 5 in Weight 154 lb BMI 25.6 BP 90/64 Blood Pressure Location Rt brachial Position Sitting Respiration 14 Pulse 63 Pulse Source Pulse Oximeter Temp 98.5 F Temp Source Oral Pulse Oximetry (%) 98 Oxygen Delivery Method Room Air Intake Visit Reasons: referral request for therapy Intake Note: pt requesting a referral for mental health specialist [place] Required: No Allergies amoxicillin [AMOXICILLIN] Allergy (Mild, Verified 06/12/24 12:14) patient got sick with chills omeprazole [OMEPRAZOLE] Adverse Reaction (Severe, Verified 06/12/24 12:14) gi upset with diarrhea ibuprofen [IBUPROFEN] Adverse Reaction (Mild, Verified 06/12/24 12:14) STOMACH UPSET Medication List - Last Reconciled 06/12/24 by Montrell Wen MD No Known Home Meds Tobacco use date assessed: 08/01/23 Dental Screening Dental Screen Date: 06/26/23 HPI referral request for therapy HPI Details 34 y/o male presents today with complain ts of depression. PHQ-9 10, YEE-7 0 today. He describes negative thoughts and feels he has not been himself lately. Had been following up with physiatry for neck, midback, low back pain. Recommended him to continue physical therapy, x-ray imaging of R shoulder. Had also recommended MRI of cervical and thoracic spine. Has complaints of chest pain and palpitations. PFSH Surgical History Hx of endoscopy Family History Father Medical history unknown Mother No problems noted. 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 1. Little interest or pleasure in doing things: not at all 2. Feeling down, depressed, or hopeless: several days 3. Trouble falling or staying asleep, or sleeping too much: not at all 4. Feeling tired or having little energy: nearly every day 5. Poor appetite or overeating: not at all 6. Feeling bad about yourself - or that you are a failure or have let yourself or your family down: not at all 7. Trouble concentrating on things, such as reading the newspaper or watching television: nearly every day 8. Moving or speaking so slowly that other people could have noticed. Or the opposite - being so fidgety or restless that you have been moving around a lot more than usual: nearly every day 9. Thoughts that you would be better off or of hurting yourself in some way: not at all Total score: 10 Depression Screening Interpretation: Positive Depression Screening Done: Yes 15932 - PHQ-9 Billing: Yes Source: Developed by Drs. Wil Lugo, Elek Olivarez, Blaise Gardner and colleagues, with an educational alex from [employer]. Thrive Questionnaire Date Thrive assessed: 06/12/24 I am a: Patient What is your living situation today?: I choose not to answer this question Within the past 12 months, did the food you bought not last and you didn't have the money to get more?: I choose not to answer this question Within the past 12 months, did you worry whether your food would run out before you got money to buy more?: I choose not to answer this question Do you have trouble paying for medicines?: I choose not to answer this question Do you have trouble getting transportation to medical appointments?: I choose not to answer this question Do you have trouble paying your heating and electricity bill?: I choose not to answer this question Do you have trouble taking care of your child, family member or friend?: I choose not to answer this question Do you have trouble with day-to-day activities such as bathing, preparing meals, shopping, managing finances, etc.?: I choose not to answer this question Are you currently unemployed and looking for a job?: I choose not to answer this question Are you interested in more education?: I choose not to answer this question Please select the resources that you would like help with: None Currently or been in a relationship where the following occur: I choose not to answer THRIVE Score: 0 AUDIT C Alcohol Use Questionnaire (AUDIT-C) 1. How often do you have a drink containing alcohol?: Never Total Score: 0 YEE-7 AMB Questionnaire YEE-7 Date YEE - 7 assessed: 06/12/24 Feeling nervous, anxious, or on edge: 0 = Not at all Not being able to stop or control worryin = Not at all Worrying too much about different things: 0 = Not at all Trouble relaxin = Not at all Being so restless that it is hard to sit still: 0 = Not at all Becoming easily annoyed or irritable: 0 = Not at all Feeling afraid as if something awful might happen: 0 = Not at all Total YEE-7 score (0-4 normal; 5-9 mild; 10-14 moderate; 15-21 severe): 0 Source: Developed by Drs. Wil Lugo, Elke Olivarez, Blaise Gardner and colleagues, with an educational alex from [employer]. YEE-7 Assessment Billing YEE-7 Assessment Tool: YEE-7 Assessment 57618 Review of Systems Const Denies chills, Denies fatigue, Denies fever(s), Denies headache(s) and Denies weakness ENT Denies dizziness and Denies headache(s) Card Reports chest pain, Denies lightheadedness, Denies dyspnea and Denies other (Palpitations) Resp Denies cough, Denies dyspnea, Denies wheezing and Denies other ( shortness of breath) Musc Denies numbness and Denies tingling Neuro Denies dizziness, Denies headache(s), Denies numbness, Denies tingling, Denies paresthesias and Denies weakness Psych Reports depression Endo Denies fatigue Aller/Immun Denies wheezing Physical exam (Primary Care) Vital Signs: Last Vital Signs Temp 98.5 F 06/12/24 12:14 Pulse 63 06/12/24 12:14 Resp 14 06/12/24 12:14 BP 90/64 06/12/24 12:14 Pulse Ox 98 06/12/24 12:14 Oxygen Delivery Method Room Air 06/12/24 12:14 BMI result Body Mass Index 25.6 Tobacco/Smoking Status: Tobacco use Status Tobacco use date assessed 08/01/23 06/12/24 12:09 Patient Tobacco Use Status Never used Tobacco 06/12/24 12:09 e-Cigarette/Vaping Use Never Used 06/12/24 12:09 PHQ-9: PHQ-9 Score PHQ-9: Total score 10 06/12/24 12:18 Depression Screening Interpretation: Positive Thrive Assessment: Date of Thrive Assessment Date Thrive assessed 06/12/24 06/12/24 12:18 Currently or been in a relationship where the following occur: I choose not to answer Const General: no acute distress and well developed Nutritional Appearance: well nourished Orientation/consciousness: patient oriented x3 HENMT Head: Yes normocephalic and Yes atraumatic Eyes General: appearance normal, both eyes and all related structures Pupils: Equal, round and reactive pupils present EOM: EOMs intact bilaterally Resp Effort & Inspection: normal respiratory effort Auscultation: clear to auscultation bilaterally Cardio Rate: regular rate Rhythm: regular rhythm Heart sounds: S1 normal heart sound present, S2 normal heart sound present, no gallops, no murmurs and no rubs Neuro General: patient oriented x3 and gait normal Cranial nerves: Yes Equal, round and reactive pupils present Psych Affect: normal affect Coding Level of Care Code Est Pt Level 4 (96515) Diagnoses Depression F32.A Chronic right-sided thoracic back pain M54.6; G89.29 Back pain laterality: right Chronicity: chronic Chest pain R07.9 Elevated ALT measurement R74.01 Palpitations R00.2 Additional Codes YEE-7 Assessment Billing - YEE-7 Assessment Tool: YEE-7 Assessment 54696 ([id number]) PHQ-9 - 96577 - PHQ-9 Billing: Yes ([id number]) Assessment & Plan Assessment & Plan (1) Depression: Code(s): F32.A - Depression, unspecified Category: Medical Plan: Significant?depression and?patient?notes?that?he?did?have?SI?in?December Currently?no SI/HI Patient?also?contracts?for?safety Will?refer?him?to?[facility] [place]?consult?team Had?a? discussion?with?patient?regarding?1st?and?2nd?line?medications?for?anxiety?and?d epression. Patient?declines?medications?this?time. (2) Thoracic back pain: Code(s): M54.6 - Pain in thoracic spine Category: Medical Qualifiers: Back pain laterality: right Chronicity: chronic Qualified Code(s): M54.6 - Pain in thoracic spine; G89.29 - Other chronic pain Plan: Ongoing?back?pain?in?patient?is?followed?by?Ortho?and?management Recent MR/MR thoracic spine wo con IMPRESSION: 1. No significant disc herniation, spinal canal stenosis, or neural foraminal narrowing throughout the thoracic spine. 2. Chronic-appearing compression fracture deformity of T4 with less than 20% vertebral body height loss anteriorly. Continue?to?follow-up?with above?specialists (3) Chest pain: Code(s): R07.9 - Chest pain, unspecified Category: Medical Plan: Chest?pain?and?palpitations. ?Worsened?with?inspiration. EKG: ?EKG?shows?normal?sinus?rhythm,?normal?axis,?no?hyper trophy,?no?ST-T-wave?changes. Chest?x-ray ordered Holter?monitor?test?ordered We?will?follow-up?at?his?upcoming?visit (4) Elevated ALT measurement: Code(s): R74.01 - Elevation of levels of liver transaminase levels Category: Medical Plan: Patient?had?had?elevated?liver?enzymes?past?and?has?not?followed?up He?will?get?his?liver?enzymes?Check?today?and?follow-up?this?at?his?next?visit (5) Palpitations: Code(s): R00.2 - Palpitations Category: Medical Plan: As?above,?EKG?is?normal Holter?monitor?test?is?ordered Orders: Orders Comprehensive Met. Panel Today R74.01 - Elevation of levels of liver transaminase levels AMB EKG-In Office Today R07.9 - Chest pain, unspecified XR chest 2V Today R07.9 - Chest pain, unspecified, R74.01 - Elevation of levels of liver transaminase levels Referrals Psychiatry Outpatient Consultation Service F32.A - Depression, unspecified
[2024-06-12 12:14] VITALS: BP 90/64; PULSE 63; RESP 14; TEMP 36.9; O2SAT 98; BMI 25.6
--- OUTSIDE RECORDS SUMMARY | 2024-06-12 14:50 | XMS_ITS | Clinical Summary ---
Author Organization [facility] Address [address] [place] [address] Care Team Providers Care Satin Finisher Name Role Phone Ashley Acuña WHEEL TRUING MACHINE TENDER Primary Care Provider [phone] Source Comments PLEASE NOTE, if this patient is a minor, it may be UNLAWFUL to discuss sensitive information that is contained in these records (such as FAMILY PLANNING, MENTAL HEALTH or SUBSTANCE ABUSE) with the minor patient's parent or other person without the patient's specific authorization.[facility] Allergies No known active allergies Medications omeprazole (PRILOSEC) [address] Dorsey ns:Gastroesophag eal reflux disease without esophagitis Take 1 Cap by mouth every morning before breakfast Do not crush or chew. 30 Cap 1 8 Active hydrOXYzine HCl (ATARAX) 25 mg tabletIndication s:Insomnia, unspecified type,Anxiety Take 1 Tab by mouth 3 (three) times daily as needed for anxiety or sleep 90 Tab 8 Active Active Problems Problem Noted Date Diagnosed Date Anxiety 12/12/2017 Insomnia 12/12/2017 Gastroesophageal reflux disease without esophagi tis 12/12/2017 Right hydrocele 05/24/2016 Overview (07/10/2016): Seen by urology 06/21/16- because very small advised scrotal support and NSAIDS US testicles done 05/19/16 at [facility] did not reveal and evidence of acute testicular torsion. Right testicle did show mild hydrocele Right inguinal hernia 05/10/2016 Immunizations Name Administration Dates Next Due INFLUENZA, SEASONAL, INJECTABLE, PRESERVATIVE FR EE 02/20/2013 PPD 02/06/2017 TDAP 06/12/2017 Social History Tobacco Use Types Packs/Day Years Used Date Smoking Tobacco: Never Smokeless Tobacco: Never Alcohol Use Standard Drinks/Week Comments No 0 (1 standard drink = 0.6 oz pur e alcohol) Social Connections Answer Date Recorded Social Connections and Isolation 0 12/08/2018 Financial Resource Strain Answer Date R ecorded Financial Resource Strain 0 2018 Stress Answer Date Recorded Stress 0 12/08/2018 Physical Activity Answer Date Recorded Physical Activity 0 12/08/2018 Food Insecurity Answer Date Recorded Food 0 12/08/2018 Transportation Needs Answer Date Record ed Transportation 0 12/08/2018 Housing Stability Answer Date Recorded Housing 0 12/08/2018 Safety and Environment Answer Date Domenico rded Safety 0 12/08/2018 Utilities Answer Date Recorded Utilities 0 12/08/2018 Employment Answer Date Recorded Employment 0 12/08/2018 Sex and Gender Information Value Date Recorded Sex Assigned at Male 02/06/2017 11:09 AM PDT Legal Sex Male 11:36 AM PDT Gender Identity Male 02/06/2017 11:09 AM PDT Sexual Orientation Straight 05/09/2017 7: 00 AM PST Last Filed Vital Signs Vital Sign Reading Time Taken Comments Blood Pressure 96/60 12/12/2017 3:27 PM EDT Pulse 67 12/12/2017 3:27 PM EDT Temperature 36.7 ??C (98 ??F) 12/12/2017 3:27 PM EDT Respiratory Rate 12 12/12/2017 3:27 PM EDT Oxygen Saturation 98% 12/12/2017 3:27 PM EDT Inhaled Oxygen Concentration - - Weight 70.5 kg (155 lb 8 oz) 12/12/2017 3:27 PM EDT Height 163.5 cm (5' 4.37 ) 12/12/2017 3:27 PM ED T Body Mass Index 26.39 12/12/2017 3:27 PM EDT Plan of Treatment Not on file Insurance [place] MEDICAID DENTAL Member Subscriber Plan / Payer (Ef fective 2016-Present) Name:Jesus Santos Relation to Subscriber:Self Name:Patricia Santosnathan Payer ID:[id number] Group ID:Not on file Type:Medicaid Address: [place] [id number] [facility] Care Teams Satin Finisher Relationship Specialty Start Date End Date Ashley Acuña FNP [address] [place] [id number] PCP - General 10/29/18
== END 2024-06-12 13:07 | disposition home or self-care (01) ==
PROVIDERS: PCP Family Medicine; Visit Provider Family Medicine
DX: F32.A Depression, unspecified (principal); M54.6 Pain in thoracic spine; G89.29 Other chronic pain; R07.9 Chest pain, unspecified; R74.01 Elevation of levels of liver transaminase levels; R00.2 Palpitations

== ENCOUNTER 2024-06-12 13:03 | Outpatient (REF) | payer OTHER, SELFPAY ==
[2024-06-12 14:54] LABS: Alanine Aminotransferase 36 U/L (0-40); Albumin Level 4.5 g/dL (3.5-5.0); Alkaline Phosphatase 62 U/L (39-117); Anion Gap 9 (12-20); Aspartate Amino Transferase 21 U/L (5-37); Bilirubin Total 0.4 mg/dL (0.0-1.0); Blood Urea Nitrogen 12 mg/dL (9-16); Carbon Dioxide 30 mmol/L (22-29); Chloride 106 mmol/L (96-108); Estimated Glomerular Filt Rate > 60; Glucose Random 95 mg/dL (60-115); Potassium 4.2 mmol/L (3.3-5.1); Sodium 141 mmol/L (135-145); Total Protein 8.1 g/dL (6.5-8.0)
--- OUTSIDE RECORDS SUMMARY | 2024-06-12 16:02 | XMS_ITS | Clinical Summary ---
Author Organization [facility] Address [address] [place] [address] Care Team Providers Care Sailing Master Name Role Phone Ashley Acuña ASSEMBLYMAN OR WOMAN Primary Care Provider Source Comments PLEASE NOTE, if this patient [...] and NSAIDS US testicles done 05/19/16 at [facility] did not reveal and evidence of acute [...] Plan of Treatment Not on file Insurance [place] MEDICAID DENTAL Member Subscriber Plan / Payer (Ef fective 2016-Present) Name:Jesus Santos Relation to Subscriber:Self Name:Patricia aSntosnathan Payer ID:[id number] Group ID:Not on file Type:Medicaid Address: [place] [id number] [facility] Care Teams Sailing Master Relationship Specialty Start Date End Date Ashley Acuña FNP [address] [place] [id number] PCP - General 10/29/18
== END 2024-06-12 13:04 | disposition home or self-care (01) ==
LOC: HO.WFDLDS 13:03
PROVIDERS: Visit Provider Family Medicine
DX: F32.A Depression, unspecified (principal); M54.6 Pain in thoracic spine; G89.29 Other chronic pain; R07.9 Chest pain, unspecified; R74.01 Elevation of levels of liver transaminase levels; R00.2 Palpitations
CPT/HCPCS: 36415; 80053; 96127; 99212

== ENCOUNTER → 2024-08-14 12:53 | Outpatient (REF) | payer OTHER, SELFPAY ==
--- OUTSIDE RECORDS SUMMARY | 2024-08-14 14:08 | XMS_ITS | Clinical Summary ---
Author Organization [facility] Address [address] [place] [address] Care Team Providers Care Editor Book Name Role Phone Ashley Acuña GENERAL UTILITY WORKER Primary Care Provider [phone] Source Comments PLEASE NOTE, if this patient [...] and NSAIDS US testicles done 05/19/16 at [facility] did not reveal and evidence of acute testicular torsion. Right testicle did show mild hydrocele Right inguinal hernia 05/10/2016 Immunizations Immunization Administration Dates Next Due INFLUENZA, SEASONAL, INJECTABLE, [...] Plan of Treatment Not on file Insurance [place] MEDICAID DENTAL Member Subscriber Plan / Payer (Ef fective 2016-Present) Name:Jesus Santos Relation to Subscriber:Self Name:Patricia Santosnathan Payer ID:[id number] Group ID:Not on file Type:Medicaid Address: [place] [id number] [facility] Care Teams Editor Book Relationship Specialty Start Date End Date Ashley Acuña FNP [address] [place] [id number] PCP - General 10/29/18
== END ==
LOC: HO.CARD 12:53
PROVIDERS: Visit Provider Family Medicine
DX: R00.2 Palpitations (principal)
CPT/HCPCS: 93225

== ENCOUNTER 2024-09-25 09:12 | Outpatient (AMB) | payer OTHER, SELFPAY ==
--- NOTE | 2024-09-25 09:32 | MHC.PC.OV ---
Vital Signs 09/25/24 09:34 Height 5 ft 5 in Weight 157 lb 6 oz BMI 26.2 BP 100/70 Blood Pressure Location Rt brachial Position Sitting Respiration 14 Pulse 65 Pulse Source Pulse Oximeter Temp 98.4 F Temp Source Oral Pulse Oximetry (%) 98 Oxygen Delivery Method Room Air Intake Visit Reasons: Palpitations Intake Note: patient is scheduled to follow up for palpatations [place] Required: No Allergies amoxicillin [AMOXICILLIN] Allergy (Mild, Verified 09/25/24 09:33) patient got sick with chills omeprazole [OMEPRAZOLE] Adverse Reaction (Severe, Verified 09/25/24 09:33) gi upset with diarrhea ibuprofen [IBUPROFEN] Adverse Reaction (Mild, Verified 09/25/24 09:33) STOMACH UPSET Medication List - Last Reconciled 09/25/24 by Montrell Wen MD No Known Home Meds Tobacco use date assessed: 08/01/23 Dental Screening Dental Screen Date: 06/26/23 HPI Palpitations HPI Details 34 y/o male presents to f/u palpitations, holter monitor and chest x-ray. He had reported chest pain and palpitations which are worsened with deep inspiration. Holter monitor 08/14/24: Total monitoring time 2 days. No significant supraventricular or ventricular ectopy. No significant arrhythmias. No significant bradycardia or high-grade AV blocks. Patient markers used with sinus rhythm. Symptoms in patient diary including shortness of breath, heavy breathing, palpitations, chest discomfort, erratic heartbeat, correlate with sinus rhythm. He has not gotten his chest x-ray done yet. Pt has complaints of allergies. Liver enzymes have improved from labs drawn in May. [facility] Hx of endoscopy Family History Father Medical history unknown Mother No problems noted. 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 1. Little interest or pleasure in doing things: several days 2. Feeling down, depressed, or hopeless: more than half the days 3. Trouble falling or staying asleep, or sleeping too much: more than half the days 4. Feeling tired or having little energy: more than half the days 5. Poor appetite or overeating: several days 6. Feeling bad about yourself - or that you are a failure or have let yourself or your family down: several days 7. Trouble concentrating on things, such as reading the newspaper or watching television: nearly every day 8. Moving or speaking so slowly that other people could have noticed. Or the opposite - being so fidgety or restless that you have been moving around a lot more than usual: more than half the days 9. Thoughts that you would be better off or of hurting yourself in some way: not at all Total score: 14 Source: Developed by Drs. Wil Lugo, Elke Olivarez, Blaise Gardner and colleagues, with an educational alex from [employer]. Thrive Questionnaire Date Thrive assessed: 06/12/24 I am a: Patient What is your living situation today?: I choose not to answer this question Within the past 12 months, did the food you bought not last and you didn't have the money to get more?: I choose not to answer this question Within the past 12 months, did you worry whether your food would run out before you got money to buy more?: I choose not to answer this question Do you have trouble paying for medicines?: I choose not to answer this question Do you have trouble getting transportation to medical appointments?: I choose not to answer this question Do you have trouble paying your heating and electricity bill?: I choose not to answer this question Do you have trouble taking care of your child, family member or friend?: I choose not to answer this question Do you have trouble with day-to-day activities such as bathing, preparing meals, shopping, managing finances, etc.?: I choose not to answer this question Are you currently unemployed and looking for a job?: I choose not to answer this question Are you interested in more education?: I choose not to answer this question Please select the resources that you would like help with: None Currently or been in a relationship where the following occur: I choose not to answer THRIVE Score: 0 YEE-7 AMB Questionnaire YEE-7 Date YEE - 7 assessed: 06/12/24 Source: Developed by Drs. Wil Lugo, Elke Olivarez, Blaise Gardner and colleagues, with an educational alex from [employer]. Review of Systems Const Denies chills, Denies fatigue, Denies fever(s), Denies headache(s) and Denies weakness ENT Denies dizziness and Denies headache(s) Card Denies dyspnea Resp Denies cough, Denies dyspnea, Denies wheezing and Denies other (shortness of breath) Musc Denies numbness and Denies tingling Neuro Denies dizziness, Denies headache(s), Denies numbness, Denies tingling and Denies weakness Psych Denies anxiety and Denies depression Endo Denies fatigue Aller/Immun Denies wheezing Physical exam (Primary Care) Vital Signs: Last Vital Signs Temp 98.4 F 09/25/24 09:34 Pulse 65 09/25/24 09:34 Resp 14 09/25/24 09:34 BP 100/70 09/25/24 09:34 Pulse Ox 98 09/25/24 09:34 Oxygen Delivery Method Room Air 09/25/24 09:34 BMI result Body Mass Index 26.2 Tobacco/Smoking Status: Tobacco use Status Tobacco use date assessed 08/01/23 09/25/24 09:37 Patient Tobacco Use Status Never used Tobacco 09/25/24 09:37 e-Cigarette/Vaping Use Never Used 09/25/24 09:37 PHQ-9: PHQ-9 Score PHQ-9: Total score 14 09/25/24 09:48 Thrive Assessment: Date of Thrive Assessment Date Thrive assessed 06/12/24 09/25/24 09:37 Currently or been in a relationship where the following occur: I choose not to answer Const General: well developed; No acute distress Nutritional Appearance: well nourished Orientation/consciousness: patient oriented x3 HENMT Head: Yes normocephalic and Yes atraumatic Eyes General: appearance normal, both eyes and all related structures Pupils: Equal, round and reactive pupils present EOM: EOMs intact bilaterally Resp Effort & Inspection: normal respiratory effort Auscultation: clear to auscultation bilaterally Cardio Rate: regular rate Rhythm: regular rhythm Heart sounds: S1 normal heart sound present, S2 normal heart sound present, no gallops, no murmurs and no rubs Neuro General: patient oriented x3 and gait normal Cranial nerves: Yes Equal, round and reactive pupils present Psych Affect: normal affect Coding Level of Care Code Est Pt Level 4 (68843) Diagnoses Palpitations R00.2 Chest pain R07.9 Elevated ALT measurement R74.01 Depression F32.A Allergies T78.40XA Assessment & Plan Assessment & Plan (1) Palpitations: Code(s): R00.2 - Palpitations Category: Medical Plan: Recent EKG was okay Holter monitor is normal no evidence of cardiac involvement possible pectoral or intercostal muscle spasms some discomfort with deep inspiration-see below reassured patient this does not seem to be cardiac in nature (2) Chest pain: Code(s): R07.9 - Chest pain, unspecified Category: Medical Plan: some discomfort with deep inspiration had ordered chest x-ray which patient has not gotten done yet. He will get this done and I will call him if action is required (3) Elevated ALT measurement: Code(s): R74.01 - Elevation of levels of liver transaminase levels Category: Medical Plan: liver enzymes back within normal range maintain healthy weight hydrate well. avoid alcohol or only in moderation (4) Depression: Code(s): F32.A - Depression, unspecified Category: Medical Plan: depression and anxiety he now has a therapist and things are going well follow-up with therapist as recommended (5) Allergies: Code(s): T78.40XA - Allergy, unspecified, initial encounter Category: Medical Plan: significant allergies and he tried loratadine but switched to a 1st generation antihistamine which is helping more but making him a little drowsy will get him a nasal steroid if improving he can switch back to a daytime antihistamine. Medications: New fluticasone propionate 50 mcg/actuation (Flonase Allergy Relief) administer into each nostril 1 spray intranasal Q12H 30 days 16 grams 2RF
[2024-09-25 09:34] VITALS: BP 100/70; PULSE 65; RESP 14; TEMP 36.9; O2SAT 98; BMI 26.2
--- OUTSIDE RECORDS SUMMARY | 2024-09-25 09:50 | XMS_ITS | Clinical Summary ---
Author Organization [facility] Address [address] [place] [address] Care Team Providers Care Teletype Technician Name Role Phone Ashley Acuña CONTACT CENTER ENGINEER Primary Care Provider [phone] Source Comments PLEASE NOTE, if this patient [...] and NSAIDS US testicles done 05/19/16 at [facility] did not reveal and evidence [...] Plan of Treatment Not on file [place] Subscriber Plan / Payer (Ef fective 2016-Present) Name:Jesus Santos Relation to Subscriber:Self Name:Patricia Santosnathan Payer ID:[id number] Group ID:Not on file Type:Medicaid Address: [place] [id number] [facility] Care Teams Teletype Technician Relationship Specialty Start Date End Date Ashley Acuña FNP [address] [place] [id number] PCP - General 10/29/18
== END 2024-09-25 12:45 | disposition home or self-care (01) ==
LOC: HO.HMCFM 09:13
PROVIDERS: PCP Family Medicine; Visit Provider Family Medicine
DX: R00.2 Palpitations (principal); R07.9 Chest pain, unspecified; R74.01 Elevation of levels of liver transaminase levels; F32.A Depression, unspecified; T78.40XA Allergy, unspecified, initial encounter

== ENCOUNTER → 2024-09-25 09:12 | Outpatient (BNVA) | payer OTHER, SELFPAY | PROVIDERS: PCP Family Medicine; Visit Provider Family Medicine | DX: R00.2 Palpitations (principal); R07.9 Chest pain, unspecified; R74.01 Elevation of levels of liver transaminase levels; F32.A Depression, unspecified; Z91.09 Other allergy status, other than to drugs and biological substances | CPT/HCPCS: 99212 ==

== ENCOUNTER 2025-02-14 10:03 | Outpatient (REF) | payer OTHER, SELFPAY ==
--- OUTSIDE RECORDS SUMMARY | 2025-02-14 12:08 | XMS_ITS | Clinical Summary ---
Author Organization [facility] Address [address] [place] [address] Care Team Providers Care Book Retailer Name Role Phone Ashley Acuña HEAVY MOBILE EQUIPMENT REPAIRER Primary Care Provider [phone] Source Comments PLEASE NOTE, if this patient [...] and NSAIDS US testicles done 05/19/[address] [facility] did not reveal and evidence [...] 67 12/12/2017 3:27 PM EDT Temperature 36.7 C (98 F) 12/12/2017 3:27 PM EDT Respiratory Rate 12 12/12/2017 3:27 PM EDT Oxygen Saturation 98% 12/12/2017 3:27 PM EDT Inhaled Oxygen Concentration - - Weight 70.5 kg (155 lb 8 oz) 12/12/2017 3:27 PM EDT Height 163.5 cm (5' 4.37 ) 12/12/2017 3:27 PM ED T Body Mass Index 26.39 12/12/2017 3:27 PM EDT Plan of Treatment Not on file [place] [facility] SAFETY NET DENTAL DENTAL Member Subscriber Plan / Payer (Ef fective 2016-Present) Name:Jesus Santos Relation to Subscriber:Self Name:Jesus Santos Payer ID:[id number] Group ID:Not on file Type:Medicaid Address: [place] [id number] [facility] [employer] Care Teams Book Retailer Relationship Specialty Start Date End Date Ashley Acuña FNP [address] [place] [id number] PCP - General 10/29/18
[2025-02-15 07:14] LABS: Syphilis Screen Nonreactive (Nonreactive)
[2025-02-15 07:39] LABS: HIV Num 1 0.06 S/CO (0.00-0.99)
[2025-02-23 14:09] LABS: Testosterone, Free 94.0 pg/mL (35.0-155.0)
== END 2025-02-14 10:04 | disposition home or self-care (01) ==
LOC: HO.WFDLDS 10:03
PROVIDERS: PCP Family Medicine; Visit Provider Nurse Practitioner Family
DX: Z00.00 Encounter for general adult medical examination without abnormal findings (principal); N50.82 Scrotal pain; R39.14 Feeling of incomplete bladder emptying; R39.198 Other difficulties with micturition; R39.16 Straining to void; L91.8 Other hypertrophic disorders of the skin; F41.9 Anxiety disorder, unspecified; F33.0 Major depressive disorder, recurrent, mild; K21.00 Gastro-esophageal reflux disease with esophagitis, without bleeding; K29.60 Other gastritis without bleeding; N50.812 Left testicular pain; R30.0 Dysuria; N43.3 Hydrocele, unspecified; Z11.3 Encounter for screening for infections with a predominantly sexual mode of transmission; Z98.52 Vasectomy status
CPT/HCPCS: 36415; 84402; 84403; 86780; 87389; 96127; 99212; 99395

== ENCOUNTER 2025-02-14 10:03 | Outpatient (AMB) | payer OTHER, SELFPAY ==
--- NOTE | 2025-02-14 10:06 | A.OFFPC_ITS ---
Vital Signs 02/14/25 10:13 Height 5 ft 5 in Weight 152 lb BMI 25.3 BP 102/66 Blood Pressure Location Rt brachial Position Sitting Respiration 12 Pulse 65 Pulse Source Pulse Oximeter Temp 97.2 F Temp Source Oral Pulse Oximetry (%) 98 Oxygen Delivery Method Room Air Intake Visit Reasons: cpe/ bloodwork for weakness Intake Note: CPE and Patient c/o weakness. Patient c/o left bum on the left side of neck. Patient states has a lump on left testicular and px. Patient had a vasectomy in 2018. 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 Required: No Allergies amoxicillin (AMOXICILLIN) Allergy (Mild, Verified 02/14/25 10:21) patient got sick with chills omeprazole (OMEPRAZOLE) Adverse Reaction (Severe, Verified 02/14/25 10:21) gi upset with diarrhea ibuprofen (IBUPROFEN) Adverse Reaction (Mild, Verified 02/14/25 10:21) STOMACH UPSET Medication List - Last Reconciled 02/14/25 by NIR Lay- fluticasone propionate 50 mcg/actuation (Flonase Allergy Relief) 1 spray intrana bipin Q12H 30 days Tobacco use date assessed: 02/14/25 Dental Screening Dental Screen Date: 02/14/25 Did you have a dental visit in the last 12 months?: Yes Did you have a dental problem in the last 6 months where you did not have access to dental care?: No Was dental information given to patient?: Patient has dentist HPI HPI Comments History of Present Illness Details History of Present Illness The patient is a 34-year-old male presenting for a complete physical exam and to address genitourinary complaints. Scrotal and Urinary Complaints: - The patient reports scrotal pain that has been occurring this year, particularly when lying down. - He feels a lump inside on the left rakesh ticle and is concerned it may be growing. - Associated symptoms include some tingl ing in the area. - The lump reportedly appeared after his vasectomy, which was performed in 2018. - He has difficulty urinating, needing t o strain, and feels he does not empty his bladder completely. - A urology consult note from 2020 indic ates a history of scrotal surgery as a child and a known hydrocele on the right side. - The patient also recalls having an ult rasound at [facility] for a cyst a while ago after his vasectomy. - He denies any penile discharge or conc erns for sexually transmitted diseases. - He has no known family history of test icular cancer. Fatigue: - The patient reports that his energy le vels have been fluctuating significantly lately. - He experienced severe migraines when marissa olson attempted to stop drinking coffee. - Despite going to the gym, his energy r emains low, and he has recently taken a one-week break. Skin Tag: - The patient has a skin tag on his neck that became very large and painful three days ago. - He believes it may have been irritated by his pillow while sleeping. Preventative Care: - The patient is up to date on his immun izations, having received a flu shot, Tdap in 2021, and a COVID-19 vaccine. - His most recent labs from May showed normal electrolytes, kidney, and liver function, with an elevated total protein of 8.1. Past Medical History - Seasonal allergies - Generalized anxiety disorder, for whic h he attends counseling - Chronic pain of multiple sites - Major depressive disorder - History of elevated ALT - Erosive gastritis - Chronic fatigue - GERD with esophagitis - Restless leg syndrome - History of concussion in 2019 - History of right-sided hydrocele - History of scrotal injury as a child Past Surgical History - Vasectomy in 2018 - Scrotal surgery as a child Family History - The patient denies a known family hist ory of testicular cancer. - He is not in contact with his family a nd is otherwise unaware of their medical history. Social History - Attends counseling every two weeks. - Drinks coffee daily. - Exercises at the gym but has taken a o ne-week break. Health Maintenance - The patient will proceed with lab draw s for testosterone today and obtain a urine collection device to provide a sample at his convenience. - He was instructed to schedule his next annual physical exam with Dr. Wen in one year. - Continue with current counseling for [facility]. Review of Systems - Constitutional: Reports fatigue. - Eyes: Reports needing glasses since a 2019 concussion and a recent onset of increased blinking. - Gastrointestinal: Reports abdominal di scomfort upon palpation. - Genitourinary: Reports scrotal pain, a left-sided testicular lump, weak urinary stream, straining to urinate, and a sensation of incomplete bladder emptying. - Genitourinary: Denies penile discharge . - Musculoskeletal: Reports cracking in t he right ankle. - Skin: Reports an enlarged skin tag on the neck. - Neurological: Reports tingling sensati on in the scrotal area and migraines if he stops drinking coffee. - Psychiatric: Reports receiving weekly/ bi-weekly counseling for anxiety. Physical Exam General: Well developed, well nourished, in no acute distress. Appears stated age. Head: Normocephalic, atraumatic. Eyes: Pupils are equal, round and reactive to light and accommodation. Conjunctivae are clear. Scleras nonicteric bilat. Vision grossly normal. Ears: TMs clear AU, EACS WNL. Some wax noted. Nose: Patent, without discharge. Neck: No carotid bruit bilat. Supple, no adenopathy or thyromegaly. Breast: Edu on SBE Lungs: Clear to auscultation bilaterally. No rales, rhonchi or wheeze noted. Good air flow in all colon. Heart: Regular rate and rhythm. No murmurs, click, rubs or gallops are noted. Abdomen: Bowel sounds present in all quadrants. The abdomen is soft, tende generally speaking w/o rebound, with no masses or organomegaly noted. No hernias are noted. : Patient reports testicular and scrotal pain, a cyst on the left side, and difficulty with urination. Deferred per patient request. Reviewed MIKEY & recommendations Pulses: Peripheral pulses are equal and palpable bilaterally. Extremities: No clubbing, cyanosis nor edema is noted. Neurologic: Gait and station normal. Cranial Nerves 2-12 intact. Motor strength grossly symmetrical and intact. No sensory loss. Balance normal. Skin: No rashes, ulcers, or lesions noted. Turgor is good. Skin color is good. Hair and nails are without abnormalities. Noted benign skin tag L neck. Psych: Normal eye contact, affect and mood appropriate, and normal interactions. Patient is alert and appropriate to context. Patient is in counseling for generalized anxiety disorder and major depressive disorder. Results - Lab results from 06/12/2024: Normal el ectrolytes, kidney function, and liver function; total protein was elevated at 8.1. - Urology consult note from 2020: Noted a history of scrotal surgery as a child and a known hydrocele on the right side. - Past scrotal ultrasound: Patient recal ls an ultrasound after his vasectomy, performed at [facility] . Urology note from U reviewed. Medical Decision Making The patient is a 34-year-old male presenting for a complete physical exam with a chief complaint of genitourinary symptoms, including scrotal pain, a palpable left-sided testicular lump, and lower urinary tract symptoms such as hesitancy and a feeling of incomplete emptying. His history is significant for a vasectomy in 2018, a childhood scrotal injury, and a known right-sided hydrocele documented in a 2020 urology note. Given these findings and the new onset of symptoms on the left side, a referral to urology is warranted for a comprehensive evaluation to rule out progression of his known condition or new pathology such as an enlarging cyst, spermatocele, or other testicular abnormalities. A urinalysis will be ordered to rule out an infectious etiology for his symptoms. The patient's complaint of chronic fatigue will be investigated with a testosterone level, as low levels can contribute to this symptom. The skin tag on his neck has become inflamed and partially necrotic, which is a benign process; he was counseled on at-home removal. His other chronic conditions appear stable, and he is up to date with health maintenance. Plan 1. Scrotal Pain, Testicular Mass, And Ur inary Symptoms - A referral will be placed for the caroline ent to be evaluated by urology for his testicular and urinary complaints. Wants to hold off on US as he had to pay out of pocket previously. - A urinalysis will be ordered to assess for a urinary tract infection/STD. - A physical testicular exam was deferre d to the urology specialist. 2. Fatigue - Labs will be ordered to check the caroline ent's testosterone level as a potential contributor to his fatigue. 3. Skin Tag - The patient was advised that the infla med skin tag is a benign growth and was instructed on how to safely remove it at home, as it is already partially necrotic. Patient Instructions - You will get a phone call to schedule an appointment with a urologist for your testicular symptoms. - Please stop at the lab to have your bl ood drawn today. - While at the lab, waste picker a urine og ection cup. - Collect the first urine of the morning in the cup and return it to the lab at [facility] in [place] at your convenience. - You can remove the small skin tag on y our neck yourself by clipping it off. If it bleeds a tiny bit, you can put some Vaseline on it. - We will contact you with your lab resu lts through the patient portal. - Please schedule your next yearly physi giovana with Dr. Wen at the front desk host before you leave. Consent The patient verbally consented to the plan of care, including a referral to rology and laboratory testing (urinalysis and blood draw for testosterone). Patient was informed and verbally consented to the use of an ambient scribe for clinic note documentation during this visit. An additional 20 minutes was spent addressing the problem(s) noted at todays visit. This includes time spent before the visit reviewing the chart, time spent during the visit, and time spent after the visit on documentation reviewing laboratory results, diagnostic imaging, medications, performing a medically necessary evaluation, counseling on diagnoses, care coordination, ordering appropriate tests, ordering appropriate medications, review of tests performed by other providers, reporting test results with the patient, communication with other healthcare providers. PFSH Surgical History Hx of endoscopy Family History Father Medical history unknown Mother No problems noted. 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 1. Little interest or pleasure in doing things: several days 2. Feeling down, depressed, or hopeless: more than half the days 3. Trouble falling or staying asleep, or sleeping too much: more than half the days 4. Feeling tired or having little energy: more than half the days 5. Poor appetite or overeating: several days 6. Feeling bad about yourself - or that you are a failure or have let yourself or your family down: several days 7. Trouble concentrating on things, such as reading the newspaper or watching television: nearly every day 8. Moving or speaking so slowly that other people could have noticed. Or the opposite - being so fidgety or restless that you have been moving around a lot more than usual: more than half the days 9. Thoughts that you would be better off or of hurting yourself in some way: not at all Total score: 14 Depression Screening Interpretation: Positive Depression Screening Follow-up: Existing condition and In treatment Depression Screening Done: Yes 21276 - PHQ-9 Billing: Yes Source: Developed by Elke Tabares Kurt Kroenke and colleagues, with an educational alex from [employer]. Thrive Questionnaire Date Thrive assessed: 02/14/25 I am a: Patient What is your living situation today?: I choose not to answer this question Within the past 12 months, did the food you bought not last and you didn't have the money to get more?: I choose not to answer this question Within the past 12 months, did you worry whether your food would run out before you got money to buy more?: I choose not to answer this question Do you have trouble paying for medicines?: I choose not to answer this question Do you have trouble getting transportation to medical appointments?: I choose not to answer this question Do you have trouble paying your heating and electricity bill?: I choose not to answer this question Do you have trouble taking care of your child, family member or friend?: I choose not to answer this question Do you have trouble with day-to-day activities such as bathing, preparing meals, shopping, managing finances, etc.?: I choose not to answer this question Are you currently unemployed and looking for a job?: I choose not to answer this question Are you interested in more education?: I choose not to answer this question Please select the resources that you would like help with: None Currently or been in a relationship where the following occur: I choose not to answer THRIVE Score: 0 YEE-7 AMB Questionnaire YEE-7 Date YEE - 7 assessed: 02/14/25 Source: Developed by Drs. Wil Lugo, Elke B.W. Blaise Olivarez and colleagues, with an educational alex from [employer]. Physical exam (Primary Care) Vital Signs: Last Vital Signs Temp 97.2 F 02/14/25 10:13 Pulse 65 02/14/25 10:13 Resp 12 02/14/25 10:13 BP 102/66 02/14/25 10:13 Pulse Ox 98 02/14/25 10:13 Oxygen Delivery Method Room Air 02/14/25 10:13 BMI result Body Mass Index 25.3 Tobacco/Smoking Status: Tobacco use Status Tobacco use date assessed 02/14/25 02/14/25 10:13 Patient Tobacco Use Status Never used Tobacco 02/14/25 10:06 e-Cigarette/Vaping Use Never Used 02/14/25 10:06 PHQ-9: PHQ-9 Score PHQ-9: Total score 14 02/14/25 10:14 Depression Screening Interpretation: Positive Depression Screening Follow-up: Existing condition and In treatment Thrive Assessment: Date of Thrive Assessment Date Thrive assessed 02/14/25 02/14/25 10:06 Currently or been in a relationship where the following occur: I choose not to answer Coding Level of Care Code Est Pt Level 3 (43988) Est Pt Prev Care 18-39y(81200) Diagnoses Adult general medical exam Z00.00 Anxiety F41.9 Mild episode of recurrent major depressive disorder F33.0 Depression Type: major depressive disorder Major depression recurrence: recurrent Active/Remission status: currently active Major depression episode severity: mild Gastroesophageal reflux disease with esophagitis without hemorrhage K21.00 Esophagitis bleeding: without hemorrhage Erosive gastritis K29.60 Chronic fatigue R53.82 Fatigue type: chronic, unspecified Pain in left testicle N50.812 Laterality: left Dysuria R30.0 Hydrocele, right N43.3 Additional Codes PHQ-9 - 60433 - PHQ-9 Billing: Yes ([id number]) Assessment & Plan Assessment & Plan (1) Adult general medical exam: Onset Date: ~02/14/25 Code(s): Z00.00 - Encounter for general adult medical examination without abnormal findings Category: Medical (2) Anxiety: Code(s): F41.9 - Anxiety disorder, unspecified Category: Medical (3) Depression: Code(s): F32.A - Depression, unspecified Category: Medical Qualifiers: Depression Type: major depressive disorder Major depression recurrence: recurrent Active/Remission status: currently active Major depression episode severity: mild Qualified Code(s): F33.0 - Major depressive disorder, recurrent, mild (4) GERD with esophagitis: Code(s): K21.00 - Gastro-esophageal reflux disease with esophagitis, without bleeding Category: Medical Qualifiers: Esophagitis bleeding: without hemorrhage Qualified Code(s): K21.00 - Gastro-esophageal reflux disease with esophagitis, without bleeding (5) Erosive gastritis: Code(s): K29.60 - Other gastritis without bleeding Category: Medical (6) Fatigue: Code(s): R53.83 - Other fatigue Category: Medical Qualifiers: Fatigue type: chronic, unspecified Qualified Code(s): R53.82 - Chronic fatigue, unspecified (7) Testicle pain: Code(s): N50.819 - Testicular pain, unspecified Category: Medical Qualifiers: Laterality: left Qualified Code(s): N50.812 - Left testicular pain (8) Dysuria: Code(s): R30.0 - Dysuria Category: Medical (9) Hydrocele, right: Code(s): N43.3 - Hydrocele, unspecified Category: Medical Plan . Orders: Orders HIV Ab/Ag Today N50.819 - Testicular pain, unspecified, R30.0 - Dysuria, R53.83 - Other fatigue, Z11.3 - Encounter for screening for infections with a predominantly sexual mode of transmission UA CC w/rflx Micro + Cult Today N50.819 - Testicular pain, unspecified, R30.0 - Dysuria, R53.83 - Other fatigue, Z11.3 - Encounter for screening for infections with a predominantly sexual mode of transmission Syphilis Screen Today N50.819 - Testicular pain, unspecified, R30.0 - Dysuria, R53.83 - Other fatigue, Z11.3 - Encounter for screening for infections with a predominantly sexual mode of transmission CT NG by PCR Urine Today N50.819 - Testicular pain, unspecified, R30.0 - Dysuria, R53.83 - Other fatigue, Z11.3 - Encounter for screening for infections with a predominantly sexual mode of transmission Testosterone, Free/Total Today N50.819 - Testicular pain, unspecified, R30.0 - Dysuria, R53.83 - Other fatigue, Z11.3 - Encounter for screening for infections with a predominantly sexual mode of transmission Referrals Urology Referral N43.3 - Hydrocele, unspecified, N50.819 - Testicular pain, unspecified Medications: Discontinued fluticasone propionate 50 mcg/actuation (Flonase Allergy Relief) administer into each nostril Discontinued Reason: Patient Completed Course 1 spray intranasal Q12H 30 days 16 grams 2RF Patient Instructions: Health screenings for men You should visit your health care provider regularly, even if you feel healthy. The purpose of these visits is to: Screen for medical issues Assess your risk for future medical problems Encourage a healthy lifestyle Update vaccinations and other preventive care services Help you get to know your provider in case of an illness Information Even if you feel fine, you should still see your provider for regular checkups. These visits can help you avoid problems in the future. For example, the only way to find out if you have high blood pressure is to have it checked regularly. High blood sugar and high cholesterol level also may not have any symptoms in the early stages. Simple blood tests can check for these conditions. There are specific times when you should see your provider or receive specific health screenings. The [place] Preventive Services Task Force publishes a list of recommended screenings. Below are screening guidelines for men ages 40 to 64. BLOOD PRESSURE SCREENING Have your blood pressure checked at least once every year. Watch for blood pressure screenings in your area. Ask your provider if you can stop in to have your blood pressure checked. Ask your provider if you need your blood pressure checked more often if: You have diabetes, heart disease, kidney problems, or are overweight or have certain other health conditions You have a first-degree relative with high blood pressure You are Black Your blood pressure top number is from 120 to 129 mm Hg, or the bottom number is from 70 to 79 mm Hg If the top number is 130 mm Hg or greater or the bottom number is 80 mm Hg or greater, this is considered stage 1 hypertension. Schedule an appointment with your provider to learn how you can lower your blood pressure. Effects of age on blood pressure CHOLESTEROL SCREENING Cholesterol screening should begin at age 35 for men with no known risk factors for coronary heart disease. Repeat cholesterol screening should take place: Every 5 years for men with normal cholesterol levels More often if changes occur in lifestyle (including weight gain and diet) More often if you have diabetes, heart disease, kidney problems, or certain other conditions COLORECTAL CANCER SCREENING If you are under age 45, talk to your provider about getting screened. You may need to be screened if you have a strong family history of colon cancer or polyps. Screening may also be considered if you have risk factors such as a history of inflammatory bowel disease or polyps. If you are age 45 to 75, you should be screened for colorectal cancer. There are several screening tests available: A stool-based fecal occult blood (gFOBT) or fecal immunochemical test (FIT) e very year A stool sDNA test every 1 to 3 years Flexible sigmoidoscopy every 5 years or every 10 years with stool testing FIT done every year CT colonography (virtual colonoscopy) every 5 years Colonoscopy every 10 years You may need a colonoscopy more often if you have risk factors for colorectal cancer, such as: Ulcerative colitis A personal or family history of colorectal cancer A history of growths in your colon called adenomatous polyps DENTAL EXAM Go to the dentist once or twice every year for an exam and cleaning. Your dentist will evaluate if you have a need for more frequent visits. DIABETES SCREENING All adults who do not have risk factors for diabetes should be screened starting at age 35 and repeated every 3 years. If you have other risk factors for diabetes, such as a first degree relative with diabetes, overweight or obesity, high blood pressure, prediabetes, or a history of heart disease, you may be tested more often. If you are overweight and have other risk factors, such as high blood pressure and are planning to become , screening is recommended. EYE EXAM Have an eye exam every 2 to 4 years ages 40 to 54 and every 1 to 3 years ages 55 to 64. Your provider may recommend more frequent eye exams if you have vision problems or glaucoma risk. Have an eye exam that includes an examination of your retina (back of your eye) at least every year if you have diabetes. IMMUNIZATIONS Commonly needed vaccines include: Flu shot: get one every year COVID-19 vaccine: ask your provider what is best for you Tetanus-diphtheria and acellular pertussis (Tdap) vaccine: have as one of your tetanus-diphtheria vaccines if you did not receive it as an adolescent Tetanus-diphtheria: have a booster (or Tdap) every 10 years Varicella vaccine: receive 2 doses if you never had chickenpox or the varicella vaccine and were born in 1979 or after Hepatitis B vaccine: receive 2, 3, or 4 doses, depending on your exact circumstances, if you did not receive these as a child or adolescent, until age 59 Shingles (herpes zoster) vaccine: at or after age 50 Ask your provider if you should receive other immunizations, especially if you have certain medical conditions, such as diabetes or are at increased risk for some diseases such as pneumonia. INFECTIOUS DISEASE SCREENING Screening for hepatitis C: all adults ages 18 to 79 should get a one-time test for hepatitis C. Screening for human immunodeficiency virus (HIV): all people ages 15 to 65 should get a one-time test for HIV. Depending on your lifestyle and medical history, you may need to be screened for infections such as syphilis, chlamydia, and other infections. LUNG CANCER SCREENING You should have an annual screening for lung cancer with low-dose computed tomography (LDCT) if: You are age 50 to 80 years AND You have a 20 pack-year smoking history AND You currently smoke or have quit within the past 15 years OSTEOPOROSIS SCREENING If you are age 50 to 64 and have risk factors for osteoporosis, you should discuss screening with your provider. Risk factors can include long-term steroid use, low body weight, smoking, heavy alcohol use, having a fracture after age 50, or a family history of hip fracture or osteoporosis. Osteoporosis PHYSICAL EXAM All adults should visit their provider from time to time, even if they are healthy. The purpose of these visits is to: Screen for diseases Assess risk of future medical problems Encourage a healthy lifestyle Update vaccinations and other preventive care services Maintain a relationship with a provider in case of an illness Your height, weight, and body mass index (BMI) should be checked at every exam. During your exam, your provider may ask you about: Depression and anxiety Diet and exercise Alcohol and tobacco use Safety, such as use of seat belts and smoke detectors Your medicines and risk for interactions PROSTATE CANCER SCREENING If you're 55 through 69 years old, before having the test, talk to your provider about the pros and cons of having a PSA test. Ask about: Whether screening decreases your chance of dying from prostate cancer. Whether there is any harm from prostate cancer screening, such as side effects from testing or overtreatment of cancer when discovered. Whether you have a higher risk of prostate cancer than others. If you are age 55 or younger, screening is not generally recommended. You should talk with your provider about if you have a higher risk for prostate cancer. Risk factors include: Having a family history of prostate cancer (especially a brother or father) Being If you choose to be tested, the PSA blood test is repeated over time (yearly or less often), though the best frequency is not known. Prostate examinations are no longer routinely done on men with no symptoms. Prostate cancer SKIN EXAM Your provider may check your skin for signs of skin cancer, especially if you're at high risk. People at high risk include those who have had skin cancer before, have close relatives with skin cancer, or have a weakened immune system. TESTICULAR EXAM The [place] Preventive Services Task Force (USPSTF) now recommends against performing testicular self-exams. Doing testicular self-exams has been shown to have little to no benefit.
[2025-02-14 10:13] VITALS: BP 102/66; PULSE 65; RESP 12; TEMP 36.2; O2SAT 98; BMI 25.3
== END 2025-02-14 10:38 | disposition home or self-care (01) ==
LOC: HO.HMCFM 10:04
PROVIDERS: PCP Family Medicine; Visit Provider Nurse Practitioner Family
DX: Z00.00 Encounter for general adult medical examination without abnormal findings (principal); F41.9 Anxiety disorder, unspecified; F33.0 Major depressive disorder, recurrent, mild; K21.00 Gastro-esophageal reflux disease with esophagitis, without bleeding; K29.60 Other gastritis without bleeding; R53.82 Chronic fatigue, unspecified; N50.812 Left testicular pain; N50.82 Scrotal pain; R30.0 Dysuria; R22.9 Localized swelling, mass and lump, unspecified; N43.3 Hydrocele, unspecified

== ENCOUNTER 2025-02-18 12:16 | Outpatient (REF) | payer OTHER, SELFPAY ==
[2025-02-18 12:23] LABS: Appearance Urine Clear; Glucose Urine UA Negative (Negative); PH 7.0 (5.0-9.0); Specific Gravity - Urine <= 1.005 (1.005-1.025)
[2025-02-18 14:37] LABS: CT PCR Urine NOT DETECTED (Not Detect.); NG PCR Urine NOT DETECTED (Not Detect.)
--- OUTSIDE RECORDS SUMMARY | 2025-02-18 15:03 | XMS_ITS | Clinical Summary ---
Author Organization [facility] Address [address] [place] [address] Care Team Providers Care Clinical Care Leader Name Role Phone Ashley Acuña COMMERCIAL PLUMBER Primary Care Provider [phone] Source Comments PLEASE NOTE, if this patient [...] and NSAIDS US testicles done 05/19/16 at [facility] did not reveal and evidence of [...] Plan of Treatment Not on file [place] [facility] SAFETY NET DENTAL DENTAL Member Subscriber Plan / Payer (Ef fective 2016-Present) Name:Jesus Santos Relation to Subscriber:Self Name:Jesus Santos Payer ID:[id number] Group ID:Not on file Type:Medicaid Address: [place] [id number] [facility] [employer] Care Teams Clinical Care Leader Relationship Specialty Start Date End Date Ashley Acuña FNP [address] [place] [id number] PCP - General 10/29/18
== END 2025-02-18 12:17 | disposition home or self-care (01) ==
LOC: HO.LNP 12:16
PROVIDERS: Visit Provider Nurse Practitioner Family
DX: R53.83 Other fatigue (principal); R30.0 Dysuria; N50.819 Testicular pain, unspecified; Z20.2 Contact with and (suspected) exposure to infections with a predominantly sexual mode of transmission
CPT/HCPCS: 81003; 87491; 87591

== ENCOUNTER 2025-04-15 15:42 | Outpatient (AMB) | payer OTHER, SELFPAY ==
--- NOTE | 2025-04-15 15:49 | MHC.PC.OV ---
Vital Signs 04/15/25 15:52 Height 5 ft 5 in Weight 148 lb BMI 24.6 BP 104/64 Blood Pressure Location Rt brachial Position Sitting Respiration 13 Pulse 93 Pulse Source Pulse Oximeter Temp 98.2 F Temp Source Temporal Artery Scan Pulse Oximetry (%) 96 Oxygen Delivery Method Room Air Intake Visit Reasons: discuss referral Intake Note: Jesus presents in the office today to discuss Neurology Referral. Radar Systems Engineer Required: No Allergies amoxicillin (AMOXICILLIN) Allergy (Mild, Verified 04/15/25 15:50) patient got sick with chills omeprazole (OMEPRAZOLE) Adverse Reaction (Severe, Verified 04/15/25 15:50) gi upset with diarrhea ibuprofen (IBUPROFEN) Adverse Reaction (Mild, Verified 04/15/25 15:50) STOMACH UPSET Medication List - Last Reconciled 04/15/25 by Montrell Wen MD naproxen 500 mg PO BID PRN 30 days Tobacco use date assessed: 04/15/25 Dental Screening Dental Screen Date: 04/15/25 Did you have a dental visit in the last 12 months?: Yes Did you have a dental problem in the last 6 months where you did not have access to dental care?: No Was dental information given to patient?: Patient has dentist HPI discuss referral HPI Details 34 y/o male presents to discuss neurology referral. Pt notes ? learning disability. Pt notes hx of dyslexia. Reports R forearm, wrist pain and some back pain. PFSH Surgical History Hx of endoscopy Family History (Updated 04/15/25 @ 15:50 by Madeleine Rodriguez CMA) Father Medical history unknown Mother No problems noted. 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 Current occupational exposures/hazards: No Cognitive needs: No Hearing needs: No Vision needs: No Questionnaire Thrive Questionnaire Date Thrive assessed: 06/12/24 I am a: Patient What is your living situation today?: I choose not to answer this question Within the past 12 months, did the food you bought not last and you didn't have the money to get more?: I choose not to answer this question Within the past 12 months, did you worry whether your food would run out before you got money to buy more?: I choose not to answer this question Do you have trouble paying for medicines?: I choose not to answer this question Do you have trouble getting transportation to medical appointments?: I choose not to answer this question Do you have trouble paying your heating and electricity bill?: I choose not to answer this question Do you have trouble taking care of your child, family member or friend?: I choose not to answer this question Do you have trouble with day-to-day activities such as bathing, preparing meals, shopping, managing finances, etc.?: I choose not to answer this question Are you currently unemployed and looking for a job?: I choose not to answer this question Are you interested in more education?: I choose not to answer this question Currently or been in a relationship where the following occur: I choose not to answer THRIVE Score: 0 YEE-7 AMB Questionnaire YEE-7 Date YEE - 7 assessed: 02/14/25 Source: Developed by Drs. Wil Lugo, Elke Olivarez, Blaise Gardner and colleagues, with an educational alex from [employer]. Physical exam (Primary Care) Vital Signs: Last Vital Signs Temp 98.2 F 04/15/25 15:52 Pulse 93 04/15/25 15:52 Resp 13 04/15/25 15:52 BP 104/64 04/15/25 15:52 Pulse Ox 96 04/15/25 15:52 Oxygen Delivery Method Room Air 04/15/25 15:52 BMI result Body Mass Index 24.6 Tobacco/Smoking Status: Tobacco use Status Tobacco use date assessed 04/15/25 04/15/25 15:57 Patient Tobacco Use Status Never used Tobacco 04/15/25 15:50 e-Cigarette/Vaping Use Never Used 04/15/25 15:50 Thrive Assessment: Date of Thrive Assessment Date Thrive assessed 06/12/24 04/15/25 15:49 Currently or been in a relationship where the following occur: I choose not to answer Coding Level of Care Code Est Pt Level 4 (96004) Diagnoses Difficulty concentrating R41.840 Complaints of learning difficulties R68.89 Right forearm pain M79.631 Back pain M54.9 Right hand pain M79.641 Assessment & Plan Assessment & Plan (1) Difficulty concentrating: Code(s): R41.840 - Attention and concentration deficit Category: Medical (2) Complaints of learning difficulties: Code(s): R68.89 - Other general symptoms and signs Category: Medical (3) Right forearm pain: Code(s): M79.631 - Pain in right forearm Category: Medical (4) Back pain: Code(s): M54.9 - Dorsalgia, unspecified Category: Medical (5) Right hand pain: Code(s): M79.641 - Pain in right hand Category: Medical Plan Patient notes difficulty with learning and also difficulty with concentrating Refer to neuropsychiatry for evaluation Right hand and thumb pain. Has tried occupational therapy without much relief. Has had injection therapy in the past which he said was helpful Referred to hand surgery for evaluation and treatment Also has some right forearm pain Continue NSAIDs Orders: Referrals Neuropsychiatry Referral R41.840 - Attention and concentration deficit, R68.89 - Other general symptoms and signs Hand Surgery Referral M79.631 - Pain in right forearm, M79.641 - Pain in right hand
[2025-04-15 15:52] VITALS: BP 104/64; PULSE 93; RESP 13; TEMP 36.8; O2SAT 96; BMI 24.6
== END 2025-04-15 16:35 | disposition home or self-care (01) ==
LOC: HO.HMCFM 15:42
PROVIDERS: PCP Family Medicine; Visit Provider Family Medicine
DX: R41.840 Attention and concentration deficit (principal); R68.89 Other general symptoms and signs; M79.631 Pain in right forearm; M54.9 Dorsalgia, unspecified; M79.641 Pain in right hand

== ENCOUNTER → 2025-04-15 15:42 | Outpatient (BNVA) | payer OTHER, SELFPAY | PROVIDERS: PCP Family Medicine; Visit Provider Family Medicine | DX: R41.840 Attention and concentration deficit (principal); R68.89 Other general symptoms and signs; M79.631 Pain in right forearm; M54.9 Dorsalgia, unspecified; M79.641 Pain in right hand | CPT/HCPCS: 99212 ==